=== PATIENT | male | born 1945 | race Caucasian/White ===

== ENCOUNTER 2022-01-10 07:58 | Emergency (ER) | payer MEDICARE, SELFPAY ==
--- NOTE | ~2022-01-10 | XR_ITS ---
EXAMINATION: XR chest 2V DATE: 01/10/2022 08:24 INDICATION: Left lower chest pain. TECHNIQUE: Frontal and lateral views of the chest were obtained. COMPARISON: None. FINDINGS: There is no pneumonia, pleural effusion, or pneumothorax. The heart size is normal. IMPRESSION: 1. No acute cardiopulmonary disease. Reviewed, dictated and finalized at location A.
--- NOTE | ~2022-01-10 | CT_ITS ---
EXAMINATION: CTA chest PE protocol DATE: 01/10/2022 09:10 INDICATION: Chest pain TECHNIQUE: Computed tomography angiography (CTA) of the chest was performed with 100 mL Omnipaque-350 intravenous contrast timed to evaluate the pulmonary arteries. Coronal maximum intensity projection 3D-reconstructions were created by the technologist. The dose-length product (DLP) was 587.87 mGy-cm. Automated exposure control and iterative reconstruction technique were employed. COMPARISON: None. FINDINGS: The pulmonary arteries are well-opacified. No pulmonary embolism is identified. There is mi ld dependent atelectasis. There are nodules along the right major and minor fissures which measure up to 4 mm, ureteral lymph nodes. There is no pleural effusion or pneumothorax. No pathologically enlar ged thoracic lymph nodes are identified. The heart size is normal. There is a small sliding hiatal he rnia. Stones are present in the nondistended gallbladder. There is moderate thoracic spondylosis. The re is a partially imaged 3.9 cm cyst of the left kidney. IMPRESSION: 1. No pulmonary embolus. Mild dependent atelectasis. Reviewed, dictated and finalized at location A.
[2022-01-10 08:02] VITALS: PULSE 93; RESP 17; TEMP 36.7; O2SAT 97
[2022-01-10 08:05] VITALS: PULSE 81
--- NOTE | 2022-01-10 08:05 | ECG_ITS ---
Measurements Intervals [place] Rate: 81 P: 49 RI: 135 QRS: 18 QRSD: 84 T: 16 QT: 348 QTc: 406 Interpretive Statements SINUS RHYTHM CANNOT RULE OUT INFERIOR MYOCARDIAL INFARCTION, PROBABLY OLD ABNORMAL ECG NO PREVIOUS ECG AVAILABLE FOR COMPARISON Electronically Signed On 01-10-2022 16:17:41 CDT by Jeremiah De Paz M.D.
--- NOTE | 2022-01-10 08:12 | ED.CHESTPAIN ---
HPI - Chest Pain General Chief Complaint: Chest Pain Stated Complaint: chest pain Time Seen by Provider: 01/10/22 08:00 Source: RN notes reviewed History of Present Illness HPI narrative: Patient presents emergency department from home for chest pain. Patient states pain began this morning upon awaking the pain is located over the left lateral inferior chest and is described as sharp and stabbing the pain only occurs when he takes a deep inspiration and resolves when he is at rest. Patient states that he has had no cough he denies any fevers or chills shortness of breath abdominal pain nausea vomiting or any other symptoms denies any previous cardiac history Related Data Home Medications Medication Instructions Recorded Confirmed amlodipine 5 mg tablet tablet 01/10/22 atorvastatin 10 mg tablet tablet 01/10/22 omeprazole 20 mg capsule,delayed 20 mg PO DAILY 01/10/22 01/10/22 release Allergies Allergy/AdvReac Type Severity Reaction Status Date / Time CAT Allergy Intermediate ITCHING, Uncoded 01/10/22 08:07 REDNESS OF EYES Review of Systems Review of Systems: Gen.: Denies fevers or chills ENT: Denies congestion Respiratory: Denies shortness of breath or cough CV: See HPI GI: Denies abdominal pain nausea, emesis or diarrhea Musculoskeletal: Denies back pain or muscle pain Neuro: Denies numbness, tingling, weakness or focal weakness Skin: Denies rash Except as documented, all other systems reviewed and negative [facility] Past Medical History Medical History (Updated 01/10/22 @ 12:01 by Jeff Rizzo DO) Hypercholesterolemia Hypertension Social History Social History (Updated 01/10/22 @ 08:13 by Jeff Rizzo DO) Smoking status: Never smoker Exam Narrative: APPEARANCE: No acute distress, nontoxic, resting in bed EYES: EOMI HEENT: Normocephalic, atraumatic, OMM RESPIRATORY: No respiratory distress Clear to auscultation bilaterally with no rhonchi wheezing or rales. CARDIOVASCULAR: Regular rate and rhythm without murmurs rubs or gallops. Chest: No overlying rash or ecchymosis nontender to palpation pain with deep inspiration no pain at rest or with holding breath ABDOMINAL: Soft, nontender, nondistended, no rebound or guarding MUSCULOSKELETAl: Moves all extremities. No clubbing, cyanosis or edema. NEURO: Awake and alert. Following commands, speech normal, no focal deficits SKIN:: Warm, dry. No rashes lesions or abrasions PSYCHIATRIC: Normal affect/mood, Course Course Emergency Course: Patient states pain is improved with Tylenol Discussed with Dr. De Paz for cardiology patient with heart score 4 based on age and risk factors but pain is atypical and more musculoskeletal in nature agrees with plan for discharge follow-up as an outpatient Discussed with patient results of workup and diagnosis. Discussed need for follow-up with primary care, proper use of medication, and reasons to return to the emergency department. Patient understands and agrees to current treatment plan Vital Signs Vital signs: Vital Signs Temperature 98.0 F 01/10/22 08:02 Pulse Rate 93 01/10/22 08:02 Respiratory Rate 17 01/10/22 08:02 Pulse Oximetry 97 01/10/22 08:02 Oxygen Delivery Room Air 01/10/22 08:02 Temperature 98.0 F 01/10/22 08:02 Pulse Rate 66 01/10/22 11:07 Respiratory Rate 14 01/10/22 11:07 Blood Pressure 148/98 H 01/10/22 11:07 Pulse Oximetry 95 01/10/22 11:07 Oxygen Delivery Room Air 01/10/22 08:02 MDM - Chest Pain MDM Narrative Medical decision making narrative: Patient's EKGs and labs are without significant high risk changes. Cardiac risk factors reviewed. Patient is felt likely low risk for ACS and reasonable for further risk stratification testing as an outpatient. Pain is only with deep inspiration and resolves with holding breath CTA shows no aneurysm PEs or pneumonia. Patient is felt to be a reasonable candidate for continued evaluation as an o
[2022-01-10] MEDS: ASPIRIN 81 MG CHEWABLE TABLET 324 MG PO (08:15)
[2022-01-10 08:17] LABS: Basophils Percent Auto 0.4 % (0.2-1.2); Eosinophils Absolute Auto 0.1 K/mm3 (0-0.3); Eosinophils Percent Auto 1.9 % (0-4.4); Hematocrit 44.9 % (42.0-52.0); Hemoglobin 15.2 g/dL (14.0-18.0); Immature Granulocyte Absolute 0.02 K/mm3 (0.00-0.031); Immature Granulocyte Percent A 0.3 % (0-0.5); Lymphocytes Percent Auto 17.3 % (18.3-44.2); Mean Corpuscular HGB Conc 33.9 g/dl (32-36); Mean Corpuscular Hemoglobin 31.3 pg (26-34); Mean Corpuscular Volume 92.4 fl (80-100); Mean Platelet Volume 9.6 fl (7.4-10.4); Monocytes Absolute Auto 0.7 K/mm3 (0.1-0.6); Monocytes Percent Auto 8.9 % (2.6-8.5); Neutrophils Absolute Auto 5.4 K/mm3 (1.3-6.7); Neutrophils Percent Auto 71.2 % (45.5-73.1); Platelet Count Result 286 k/mm3 (150-375); Red Blood Count 4.86 M/mm3 (4.6-6.20); Red Cell Distribution Width 13.7 % (11.5-14.5); White Blood Count 7.5 K/mm3 (4.5-10.0)
[2022-01-10 08:25] LABS: Prothrombin Time 12.8 Seconds (11.1-14.7)
[2022-01-10 08:26] LABS: Partial Thromboplastin Time 27.4 SECONDS (22.3-36.8)
[2022-01-10 08:30] VITALS: BP 153/93; PULSE 82; RESP 17; O2SAT 96
[2022-01-10 08:32] LABS: Alanine Aminotransferase 21 U/L (6-50); Albumin Level 4.9 g/dL (3.5-5.1); Alkaline Phosphatase 87 U/L (38-126); Anion Gap 5 mmol/L (8-16); Aspartate Amino Transferase 26 U/L (17-59); Bilirubin,Total 0.8 mg/dL (0.2-1.3); Blood Urea Nitrogen 16 mg/dL (9-20); Calcium 8.9 mg/dL (8.4-10.2); Carbon Dioxide 28 mmol/L (22-30); Chloride 105 mmol/L (98-107); Estimated CRCL calculation 63 ml/min; Estimated Glomerular Filt Rate > 60; Glucose 116 mg/dL (65-110); Lipase 124 U/L (23-300); Potassium 4.1 mmol/L (3.4-5.0); Sodium 138 mmol/L (137-145)
[2022-01-10 08:43] LABS: Troponin I < 0.012 ng/mL (0.000-0.034)
[2022-01-10 09:55] VITALS: BP 149/99; PULSE 68; RESP 18; O2SAT 97
[2022-01-10 11:07] VITALS: BP 148/98; PULSE 66; RESP 14; O2SAT 95
[2022-01-10 11:32] LABS: Troponin I < 0.012 ng/mL (0.000-0.034)
[2022-01-10 12:14] VITALS: BP 125/81; PULSE 66; RESP 18; O2SAT 98
== END 2022-01-10 12:15 | disposition home or self-care (01) ==
PROVIDERS: Emergency Provider Emergency Medicine; PCP Internal Medicine
DX: R07.89 Other chest pain (principal); E78.00 Pure hypercholesterolemia, unspecified; I10 Essential (primary) hypertension; R94.31 Abnormal electrocardiogram [ECG] [EKG]
CPT/HCPCS: 36415; 71046; 71275; 80053; 83690; 84484; 85025; 85610; 85730; 93005; 96365; 99284; A9270; J0131; Q9967

== ENCOUNTER → 2022-02-16 11:51 | Outpatient (CLI) | payer MEDICARE, SELFPAY ==
--- NOTE | ~2022-02-16 | US_ITS ---
EXAMINATION: US renal BI DATE: 02/16/2022 12:56 INDICATION: Disorders of the kidney and ureter TECHNIQUE: Multiple grayscale and Doppler ultrasound images of the kidneys were obtained. COMPARISON: None. FINDINGS: The right kidney measures 10.4 x 5.8 x 5.6 cm. The left kidney measures 11.6 x 6.6 x 7.4 cm . Cysts of the left kidney measure up to 11 cm.. The kidneys demonstrate normal parenchymal echogenic ity. There is no hydronephrosis. The bladder is normal. IMPRESSION: 1. Left kidney cysts, otherwise normal kidneys without hydronephrosis. Reviewed, dictated and finalized at location B.
== END ==
PROVIDERS: PCP Internal Medicine; Visit Provider Internal Medicine
DX: N28.1 Cyst of kidney, acquired (principal)
CPT/HCPCS: 76775

== ENCOUNTER → 2022-07-06 10:44 | Outpatient (CLI) | payer MEDICARE, SELFPAY ==
--- NOTE | ~2022-07-06 | XR_ITS ---
Clinical Indication: Cough, fever PA and lateral views of the chest: Comparison: 01/10/2022 Findings: The lungs are clear, without evidence of focal consolidation or pleural effusion. Cardiome diastinal silhouette is within normal limits. Bones and soft tissues are unremarkable. Impression: Normal chest. Reviewed, dictated and finalized at location [] NO BANKER Impression: Normal chest.
== END ==
PROVIDERS: PCP Internal Medicine; Visit Provider Allergy & Immunology
DX: R05.9 Cough, unspecified (principal); R50.9 Fever, unspecified
CPT/HCPCS: 71046

== ENCOUNTER 2024-08-27 09:33 | Outpatient (CLI) | payer MEDICARE, SELFPAY ==
--- OUTSIDE RECORDS SUMMARY | 2024-08-27 10:08 | XMS_ITS | Data Portability ---
Author Organization [facility] Roxy Contreras Address [address] [place] [address] Care Team Providers Care Television Journalist Name Role Phone JAYNA HICKMAN Primary Care Provider Unavailabl e Assessment Encounter Date Assessment Date Assessment LastModified by Organization Details LastModified Time 10/17/2023 10/17/2023 Blood work continue current therapy GERD asthma hypertension and dyslipidemia have been discussed he said he recently seen a malter operator just for overall cardiovascular checkup I will try to get those records see me in 4 months [email or web address] Not available 10/21/2023 18:06:07 02/12/2024 02/12/2024 diagnosis discussed referral for sleep physician. Healthy lifestyle care instructions. Follow up with me in 4 months. Not available 02/24/2024 21:39:46 Plan of Treatment Reminders Order Date Submit Date Provider Last Modified By Organization Details Last Modified Time Details Appointments ANY 15 2024 09:15A M Jayna Hickman MD Not available Not available Not available Lab PSA, total, serum or plasma 2023 024 MATT Shankar, [address], [place], [address], 10/18/2023 13:10:10 lipid panel, serum 2023 024 MATT Shankar, [address]22 [address], [place], [address], 10/18/2023 13:10:08 CBC w/ auto diff 2023 024 MATT Shankar, 2022 [address], [place], [address], 10/18/2023 13:10:10 CMP, serum or plasma 2023 024 MATT [facility], [address], [place], [address], 10/18/2023 13:10:09 Referral None recorded . Procedures None recorded . Surgeries None recorded . Imaging None recorded . Medication Orders None recorded . Patient TargetsNo targets recorded. Patient Instructions Encounter Date Encounter Id Patient Instructions Last Modified By Organization Details Last Modified Time 02/12/2024 [id number] A healthy lifestyle: care instructions [email or web address] Not available 02/12/2024 11:47:11 Quitting Tobacco : Care Instructions [email or web address] Not available 02/12/2024 11:47:11 Reason for Referral None Reported. Results Created Date Observation Date Name Description Value Unit Range Abnormal Flag Note LastModifiedBy Organization Detail LastModifiedTime 10/17/1910/18/2023 LIPID PANEL cholesterol, total 185 mg/dL 100-19 9 Not Available [facility] ([facility]) [address] [facility], [place], [address], 10/18/2023 13:10:08 10/17/19 24 10/18/2023 LIPID PANEL triglyceride s 170 mg/dL 0-149 above high normal Not Available [facility] ([facility]) [address] [facility], [place], [address], 10/18/2023 13:10:08 10/17/19 24 10/18/2023 LIPID PANEL HDL cholesterol 57 mg/dL >39 Not Available [facility] ([facility]) [address] [facility], [place], [address], 10/18/2023 13:10:08 10/17/19 24 10/18/2023 LIPID PANEL VLDL cholesterol vania 29 mg/dL 5-40 Not Available [facility] ([facility]) [address] [facility], [place], [address], 10/18/2023 13:10:08 10/17/19 24 10/18/2023 LIPID PANEL LDL chol calc ([facility]) 99 mg/dL 0-99 Not Available [facility] ([facility]) [address] [place], [address], 10/18/2023 13:10:08 10/17/19 24 10/18/2023 COMP. METAB OLIC PANEL (14) glucose 95 mg/dL 70-99 Not Available [facility] ([facility]) [address] [place], [address], 10/18/2023 13:10:09 10/17/19 24 10/18/2023 COMP. METAB OLIC PANEL (14) BUN 22 mg/dL 8-27 Not Available [facility] ([facility]) [address] [facility], [place], [address], 10/18/2023 13:10:09 10/17/19 24 10/18/2023 COMP. METAB OLIC PANEL (14) creatinine 1.11 mg/dL 0.76-1 .27 Not Available [facility] ([facility]) [address] [place], [address], 10/18/2023 13:10:09 10/17/19 24 10/18/2023 COMP. METAB OLIC PANEL (14) eGFR 69 mL/mi n/1.7 3 >59 Not Available [facility] ([facility]) [address] [place], [address], 10/18/2023 13:10:09 10/17/19 24 10/18/2023 COMP. METAB OLIC PANEL (14) BUN/creatini ne ratio 20 10- Not Available [facility] ([facility]) [address] [place], [address], 10/18/2023 13:10:09 10/17/19 24 10/18/2023 COMP. METAB OLIC PANEL (14) sodium 141 mmol/ L 134-14 4 Not Available [facility] ([facility]) [address] [place], [id number], 10/18/2023 13:10:09 10/17/19 24 10/18/2023 COMP. METAB OLIC PANEL (14) potassium 4.6 mmol/ L 3.5-5. 2 Not Available [facility] ([facility]) [address] [place], [id number], 10/18/2023 13:10:09 10/17/19 24 10/18/2023 COMP. METAB OLIC PANEL (14) chloride 105 mmol/ L 96-106 Not Available [facility] ([facility]) [address] [place], [id number], 10/18/2023 13:10:09 10/17/19 24 10/18/2023 COMP. METAB OLIC PANEL (14) carbon dioxide, total 24 mmol/ L 20-29 Not Available [facility] ([facility]) [address] [place], [id number], 10/18/2023 13:10:09 10/17/19 24 10/18/2023 COMP. METAB OLIC PANEL (14) calcium 9.1 mg/dL 8.6-10 .2 Not Available [facility] ([facility]) [address] [place], [id number], 10/18/2023 13:10:09 10/17/19 24 10/18/2023 COMP. METAB OLIC PANEL (14) protein, total 6.7 g/dL 6.0-8. 5 Not Available [facility] ([facility]) [address] [place], [id number], 10/18/2023 13:10:09 10/17/19 24 10/18/2023 COMP. METAB OLIC PANEL (14) albumin 4.5 g/dL 3.8-4. 8 Not Available [facility] ([facility]) [address] [place], [id number], 10/18/2023 13:10:09 10/17/19 24 10/18/2023 COMP. METAB OLIC PANEL (14) globulin, total 2.2 g/dL 1.5-4. 5 Not Available [facility] ([facility]) [address] [facility], [place], [address], 10/18/2023 13:10:09 10/17/19 24 10/18/2023 COMP. METAB OLIC PANEL (14) A/G ratio 2.0 1.2-2. 2 Not Available [facility] ([facility]) [address] [facility], [place], [address], 10/18/2023 13:10:09 10/17/19 24 10/18/2023 COMP. METAB OLIC PANEL (14) bilirubin, total 0.5 mg/dL 0.0-1. 2 Not Available [facility] ([facility]) [address] [facility], [place], [address], 10/18/2023 13:10:09 10/17/19 24 10/18/2023 COMP. METAB OLIC PANEL (14) alkaline phosphatase 88 IU/L 44-121 Not Available [facility] ([facility]) [address] [facility], [place], [address], 10/18/2023 13:10:09 10/17/19 24 10/18/2023 COMP. METAB OLIC PANEL (14) AST (SGOT) 24 IU/L 0-40 Not Available [facility] ([facility]) [address] [facility], [place], [address], 10/18/2023 13:10:09 10/17/19 24 10/18/2023 COMP. METAB OLIC PANEL (14) ALT (SGPT) 22 IU/L 0-44 Not Available [facility] ([facility]) [address] [facility], [place], [address], 10/18/2023 13:10:09 10/17/19 24 10/18/2023 CBC WITH DIFFE RENTI AL/PL ATELE T WBC 6.3 x10e3 /uL 3.4-10 .8 Not Available [facility] ([facility]) [address] [facility], [place], [address], 10/18/2023 13:10:10 10/17/19 24 10/18/2023 CBC WITH DIFFE RENTI AL/PL ATELE T RBC 4.76 x10e6 /uL 4.14-5 .80 Not Available [facility] ([facility]) [address] [facility], [place], [address], 10/18/2023 13:10:10 10/17/19 24 10/18/2023 CBC WITH DIFFE RENTI AL/PL ATELE T hemoglobin 14.9 g/dL 13.0-1 7.7 Not Available [facility] ([facility]) [address] [facility], [place], [address], 10/18/2023 13:10:10 10/17/19 24 10/18/2023 CBC WITH DIFFE RENTI AL/PL ATELE T hematocrit 44.6 % 37.5-5 1.0 Not Available [facility] ([facility]) [address] [facility], [place], [address], 10/18/2023 13:10:10 10/17/19 24 10/18/2023 CBC WITH DIFFE RENTI AL/PL ATELE T MCV 94 fL 79-97 Not Available [facility] ([facility]) [address] [facility], [place], [address], 10/18/2023 13:10:10 10/17/19 24 10/18/2023 CBC WITH DIFFE RENTI AL/PL ATELE T MCH 31.3 pg 26.6-3 3.0 Not Available [facility] ([facility]) [address] [facility], [place], [address], 10/18/2023 13:10:10 10/17/19 24 10/18/2023 CBC WITH DIFFE RENTI AL/PL ATELE T MCHC 33.4 g/dL 31.5-3 5.7 Not Available [facility] ([facility]) [address] [facility], [place], [address], 10/18/2023 13:10:10 10/17/19 24 10/18/2023 CBC WITH DIFFE RENTI AL/PL ATELE T RDW 13.0 % 11.6-1 5.4 Not Available [facility] ([facility]) [address] [facility], [place], [address], 10/18/2023 13:10:10 10/17/19 24 10/18/2023 CBC WITH DIFFE RENTI AL/PL ATELE T platelets 271 x10e3 /uL 150-45 0 Not Available [facility] ([facility]) [address] [facility], [place], [address], 10/18/2023 13:10:10 10/17/19 24 10/18/2023 CBC WITH DIFFE RENTI AL/PL ATELE T neutrophils 64 % notest ab. Not Available [facility] ([facility]) [address] [facility], [place], [address], 10/18/2023 13:10:10 10/17/19 24 10/18/2023 CBC WITH DIFFE RENTI AL/PL ATELE T lymphs 20 % notest ab. Not Available [facility] ([facility]) [address] [facility], [place], [address], 10/18/2023 13:10:10 10/17/19 24 10/18/2023 CBC WITH DIFFE RENTI AL/PL ATELE T monocytes 10 % notest ab. Not Available [facility] ([facility]) [address] [facility], [place], [address], 10/18/2023 13:10:10 10/17/19 24 10/18/2023 CBC WITH DIFFE RENTI AL/PL ATELE T eos 5 % notest ab. Not Available [facility] ([facility]) [address] [facility], [place], [address], 10/18/2023 13:10:10 10/17/19 24 10/18/2023 CBC WITH DIFFE RENTI AL/PL ATELE T basos 1 % notest ab. Not Available [facility] ([facility]) [address] [facility], [place], [address], 10/18/2023 13:10:10 10/17/19 24 10/18/2023 CBC WITH DIFFE RENTI AL/PL ATELE T neutrophils (absolute) 4.1 x10e3 /uL 1.4-7. 0 Not Available [facility] ([facility]) [address] [facility], [place], [address], 10/18/2023 13:10:10 10/17/19 24 10/18/2023 CBC WITH DIFFE RENTI AL/PL ATELE T lymphs (absolute) 1.2 x10e3 /uL 0.7-3. 1 Not Available [facility] ([facility]) [address] [facility], [place], [address], 10/18/2023 13:10:10 10/17/19 24 10/18/2023 CBC WITH DIFFE RENTI AL/PL ATELE T monocytes(ab solute) 0.7 x10e3 /uL 0.1-0. 9 Not Available [facility] ([facility]) [address] [place], [address], 10/18/2023 13:10:10 10/17/19 24 10/18/2023 CBC WITH DIFFE RENTI AL/PL ATELE T eos (absolute) 0.3 x10e3 /uL 0.0-0. 4 Not Available [facility] ([facility]) [address] [place], [address], 10/18/2023 13:10:10 10/17/19 24 10/18/2023 CBC WITH DIFFE RENTI AL/PL ATELE T baso (absolute) 0.0 x10e3 /uL 0.0-0. 2 Not Available [facility] ([facility]) [address] [facility], [place], [address], 10/18/2023 13:10:10 10/17/19 24 10/18/2023 CBC WITH DIFFE RENTI AL/PL ATELE T immature granulocytes 0 % notest ab. Not Available [facility] ([facility]) [address] [facility], [place], [address], 10/18/2023 13:10:10 10/17/19 24 10/18/2023 CBC WITH DIFFE RENTI AL/PL ATELE T immature grans (abs) 0.0 x10e3 /uL 0.0-0. 1 Not Available [facility] ([facility]) [address] [facility], [place], [address], 10/18/2023 13:10:10 10/17/19 24 10/18/2023 PROST ATE-S PECIF IC AG prostate specific Ag 3.7 NG/mL 0.0-4. 0 Mac ECLIA metho dolog y. Accor ding to the Ameri can [employer]rolo gical Assoc iatio n, Serum PSA shoul d decre ase and remai n at undet ectab le level s after radic al prost atect rossi. The AUA defin es bioch emica l recur rence as an initi al PSA value 0.2 ng/mL or great er follo wed by a subse quent confi rmato ry PSA value 0.2 ng/mL or great er. Value s obtai [place] with diffe rent assay metho ds or kits canno t be used inter johnson eably . Resul ts canno t be inter prete d as absol rj evide nce of the prese nce or absen ce of joseph ajit disea se. Not Available [facility] ([facility]) [address] [facility], [place], [address], 10/18/2023 13:10:10 Result Notes None recorded. Problems Name Problem SNOMED Code Status Onset Date Resolution Date Notes Provider Name and Address Organization Details Recorded Time Essential hypertension 90835344 Active 2023 ARMANDO Hernandez, [facility] 4 12:14:05 Screening for malignant neoplasm of prostate Active 2023 ARMANDO Hernandez, [facility] 4 12:14:06 Obstructive sleep apnea syndrome 88427402 Active 2023 Jayna Hickman MD Attn: Jeff duncan,[address] [facility], [place], [address], [facility] 4 21:37:57 Problem Notes None recorded. Procedures Surgical History Date Name Laterality Status Provider Name and Address Organization Details Recorded Time Tonsillectomy completed Shawna Capone MA [facility] 10/17/2023 11:36:24 Imaging Results None recorded. Procedure Notes None recorded. Medical Equipment None Reported. Allergies No known drug allergies Medications Name Sig Start Date Stop Date Status Note LastModified by Organization Details LastModified Time atorvastatin 10 mg tablet TAKE 1 TABLET BY MOUTH EVERY DAY active Not Available Not Available No t Available amlodipine 5 mg tablet TAKE 1 TABLET BY MOUTH EVERY DAY active Not Available Not Available No t Available sildenafil 100 mg tablet TAKE DIRECTED PER DOCTOR active Not Available Not Available No t Available Breo Ellipta 200 mcg-25 mcg/dose powder for inhalation INHALE 1 PUFF BY MOUTH EVERY DAY active Not Available Not Available No t Available Vitals Date Recorded Body weight Body mass index (BMI) Body height Heart rate Oxygen saturation Oxygen saturation in Arterial blood by Pulse oximetry Systolic blood pressure Diastolic blood pressure Provider Name and Address Organization Details Last Updated DateTime 4 39485.4 g 31.9 kg/m2 172.72 cm 73 /min 96 % 96 % 122 mm[Hg] 70 mm[Hg] Shawna Capone MA [facility] 4 11:40:03 Date Recorded Body height Body mass index (BMI) Body weight Heart rate Oxygen saturation Oxygen saturation in Arterial blood by Pulse oximetry Systolic blood pressure Diastolic blood pressure Provider Name and Address Organization Details Last Updated DateTime 4 172.72 cm 31.2 kg/m2 31841.7 2 g 80 /min 90 % 90 % 138 mm[Hg] 80 mm[Hg] Angela Boss [place] [facility] 4 10:37:23 Date Recorded Body height Body mass index (BMI) Body weight Heart rate Oxygen saturation Oxygen saturation in Arterial blood by Pulse oximetry Systolic blood pressure Diastolic blood pressure Provider Name and Address Organization Details Last Updated DateTime 5 172.72 cm 32.3 kg/m2 39696.3 g 77 /min 97 % 97 % 132 mm[Hg] 82 mm[Hg] Susan Garcia [place] [facility] 5 11:32:36 Social History Question Answer Notes LastModified by Organizat ion Details LastModified Time Tobacco Smoking Status Former Smoker Shawna Capone MA [facility], [facility] 10/17/2023 11:35:33 Do You Have An Advance Directive? Yes Information not available 10/17/2023 What Is Your Level Of Alcohol Consumption? Occasional Information not available 10/17/2023 Are You Blind Or Do You Have Difficulty Seeing? No Information not available 10/17/2023 What Is Your Level Of Caffeine Consumption? Moderate Information not available 10/17/2023 In The 14 Days Before Symptom Onset, Have You Had Close Contact With A Laboratory-confir med COVID-19 While That Case Was Ill? No Information not available 08/26/2024 In The 14 Days Before Symptom Onset, Have You Had Close Contact With A Person Who Is Under Investigation For COVID-19 While That Person Was Ill? No Information not available 08/26/2024 Have You Been To An Area Known To Be High Risk For COVID-19? No Information not available 08/26/2024 Are You Deaf Or Do You Have Serious Difficulty Hearing? No Information not available 10/17/2023 What Type Of Diet Are You Following? REGULAR Information not available 10/17/2023 What Was The Date Of Your Most Recent Tobacco Screening? 08/26/2024 Information not available 08/26/2024 What Is Your Current Pack Years? 20-29packyears Information not available 10/17/2023 What Is Your Relationship Status? Information not available 10/17/2023 Do You Use Your Seat Belt Or Car Seat Routinely? Yes Information not available 10/17/2023 Do You Have Smoke And Carbon Monoxide Detectors In Your Home? Yes Information not available 10/17/2023 How Much Tobacco Do You Smoke? 0.5 PPD Information not available 10/17/2023 Do You Feel Stressed (tense, Restless, Nervous, Or Anxious, Or Unable To Sleep At Night)? EG2428-2 Information not available 10/17/2023 Do You Use Any Illicit Or Recreational Drugs? No Information not available 10/17/2023 Do You Use Sunscreen Routinely? Yes Information not available 10/17/2023 Has Tobacco Cessation Counseling Been Provided? No Information not available 10/17/2023 How Many Years Have You Smoked Tobacco? 20 Information not available 10/17/2023 Do You Or Have You Ever Used Any Other Forms Of Tobacco Or Nicotine? No Information not available 10/17/2023 Sex: Male Functional Status Question Answer Note LastModified by OrganSymformat ion Details LastModified Time Are you able to care for yourself? Yes Information not available 10/17/2023 What is your exercise level? Occasional Information not available 10/17/2023 Mental Status None recorded. Family History Relationship Description Onset Age of this Age Resolved Age Notes LastModified by Organization Details LastModified Time Mother Alzheimer's disease [email or web address] Not available 2024 11:56:10 Sister Alzheimer's disease [email or web address] Not available 2024 11:56:10 Father Myocardial infarction [email or web address] Not available 08/23 11:56:22 Brother Myocardial infarction [email or web address] Not available 08/23 11:56:22 Brother Malignant tumor of pharynx [email or web address] Not available 2024 11:56:38 Brother Cerebrovascu lar accident [email or web address] Not available 11:56:45 Medical History Condition Response Coronary Artery Disease N Other N High Blood Pressure Y Atrial Fibrillation N Kidney or Bladder Problems N Thyroid Problems N GI Problems N Depression N COPD N Blood Clots N Have you had a mammogram in the last yea r? N Skin Problems N Anemia N Heart Attack (ND) N Anxiety Disorder N Diabetes N Muscle, Joint, or Bone Problems N Seizures/Epilepsy N Have you had a colonoscopy in the last 1 0 years? N Acid Reflux (GERD) Y Cancer N Stroke N Asthma Y Allergies N Have you had a PSA blood test in the las t year? Y High Cholesterol Y Hepatitis N Liver Disease N Headaches N Heart Failure N Osteoporosis N Immunizations Vaccine Type Date Status Note Provider Nam e and Address Organization Details Recorded Time Influenza, high-dose, quadrivalent, PF 2 completed Myriam King[place] null, [place] - [facility] 08/23/2024 11:54:02 Influenza, high-dose, quadrivalent, PF 0 completed Myriam Cervanteshl [place] [facility] 08/23/2024 11:54:02 Influenza, high-dose, quadrivalent, PF 1 completed Myriam [place] [facility] 08/23/2024 11:54:02 COVID-19, mRNA, LNP-S, PF, 30 mcg/0.3 mL dose 1 completed Myri[place] [facility] 08/23/2024 11:54:02 COVID-19, mRNA, LNP-S, PF, 30 mcg/0.3 mL dose 1 completed Myriam Cerv[place] [facility] 08/23/2024 11:54:02 COVID-19, mRNA, LNP-S, PF, 30 mcg/0.3 mL dose 1 completed Myriam Cerv[place] [facility] 08/23/2024 11:54:02 COVID-19, mRNA, LNP-S, PF, 30 mcg/0.3 mL dose, shivani-sucrose 2 completed Myriam Cerv[place] [facility] 08/23/2024 11:54:02 COVID-19, mRNA, LNP-S, bivalent, PF, 30 mcg/0.3 mL dose 2 completed Myri[place] [facility] 08/23/2024 11:54:02 pneumococcal polysaccharide PPV23 6 completed Myriam Hernandez null, [facility] 08/23/2024 11:54:02 pneumococcal polysaccharide PPV23 0 completed Myriam Hernandez null, [facility] 08/23/2024 11:54:02 Pneumococcal conjugate PCV 13 2 completed Myriam Hernandez null, [facility] 08/23/2024 11:54:02 Influenza, high-dose, trivalent, PF 7 completed Myriam Hernandez null, [facility] 08/23/2024 11:54:02 Past Encounters Encounter ID Performer Location Encounter Start Date Encounter Closed Date Diagnosis/Indication Diagnosis SNOMED-CT Code Diagnosis ICD10 Code Diagnosis Note [id number] Jayna Hickman MD [facility] ([facility] [address] [place] [address] 10/17/2023 11:09:11 10/17/2023 12:14:17 Essential hypertension 96358721 I10 Screening for malignant neoplasm of prostate 663948046 Z12.5 Hyperlipidemia 85345985 E78.5 Obstructiv e sleep apnea syndrome 28369950 G47.33 Asthma 957639386 J45.90 9 [id number] Jayna Hickman MD [facility] [place] [address] [place] [address] 02/12/2024 10:22:25 02/12/2024 11:53:49 Obesity 889405272 E66.8 Smoker 47466205 F17.200 Obstructiv e sleep apnea syndrome 16682743 G47.33 Essential hypertension 83617939 I10 Hyperlipidemia 98537930 E78.5 [id number] Tangela Kitchen MA [facility] [place] [address] [place] [address] 08/26/2024 10:54:32 08/26/2024 12:22:56 Body mass index 30+ - obesity 470231733 Z68.32 Obesity 154561187 E66.9 Essential hypertension 62472824 I10 Gastroesop hageal reflux disease without esophagitis 502213089 K21.9 Hyperlipidemia 57699584 E78.5 Screening for malignant neoplasm of prostate 319395839 Z12.5 Health Concerns Section Related Observation LastModified by Organization Detai ls LastModified Time None Recorded Concern Status LastModified by Organization Details LastModified Time None Recorded Advance Directives Directive Y: Payers Encounter Date Sequence Insurance Name Policy Number Policy Acosta Covered Member ID Acosta Member ID Guarantor Name 10/17/2023 1 [employer] (MEDICARE REPLACEMENT PPO) [id number] 1 Sterling Palm [id number] Sterling Palm 02/12/2024 1 [employer] (MEDICARE REPLACEMENT PPO) [id number] Sterling Palm [id number] Sterling Palm Notes Date Note Type Note Provider Name and Address Organization Details Recorded Time 10/17/2023 text/html Asthma doing wel l hypertension no chest pain no shortness of breath GERD no nausea no vomiting dyslipidemia try to watch his diet sleep apnea wearing his device and benefiting Jayna Hickman MD Attn: [address] [place], [address], [facility] 10/21/2023 18:07:47 02/12/2024 text/html hypertension no headache or dizziness. COPD doing fine on Breo obesity could use some help with weight restriction Jayna Hickman MD Attn: [address] [place], [address], [facility] 02/24/2024 21:40:02
--- OUTSIDE RECORDS SUMMARY | 2024-08-27 10:09 | XMS_ITS | Data Portability ---
Author Organization [place] - [facility] [place], Main Office Address [address] [place] [address] Assessment Encounter Date Assessment Date Assessment LastModified by Organization Details LastModified Time 09/29/2022 09/29/2022 Medical problems discussed doing fine blood work continue compliance with CPAP follow-up in 6 months Not available 10/01/2022 18:03:15 04/06/2023 04/06/2023 Will continue current therapy will follow-up in 6 months [email or web address] Not available 04/06/2023 21:19:00 Plan of Treatment Reminders Order Date Submit Date Provider Last Modified By Organization Details Last Modified Time Details Appointments None recorded . Lab lipid panel, serum 023 09/30/19 23 MATT Not available 3 19:10:41 CBC w/ auto diff 023 09/30/19 23 MATT Not available 3 18:48:15 CMP, serum or plasma 023 09/30/19 23 MATT Not available 3 19:10:46 Referral None recorded . Procedures None recorded . Surgeries None recorded . Imaging None recorded . Medication Orders None recorded . Patient TargetsNo targets recorded. Patient InstructionsNo instructions recorded. Reason for Referral None Reported. Results Created Date Observation Date Name Description Value Unit Range Abnormal Flag Note LastModifiedBy Organization Detail LastModifiedTime 09/02/19 22 09/02/2021 LIPID PANEL cholesterol 182 mg/dL 140-19 9 NIH BELLE NSUS RECOM MENDA TION FOR NEW STERO L: ADULT CHILD LOW RISK: <200 <170 BORDE RLINE : <200- 239 ----- HIGH RISK: >240 >200 Not Available [facility] (Lab) [address] [place], [address], 09/02/2021 21:15:09 09/02/19 22 09/02/2021 LIPID PANEL triglyceride s 94 mg/dL 0-150 NIH BELLE NSUS REPOR T RECOM MENDA TION FOR TRIGL YCERI ELPIDIO: ADULT CHILD LOW RISK: <150 ----- BODER LINE: 150-1 99 ----- HIGH RISK: >200 ----- Not Available [facility] (Lab) [address] [place], [address], 09/02/2021 21:15:09 09/02/19 22 09/02/2021 LIPID PANEL HDL cholesterol 70 mg/dL 40- Not Available [facility] (Lab) [address] [place], [address], 09/02/2021 21:15:09 09/02/19 22 09/02/2021 LIPID PANEL LDL cholesterol, calculated 93 mg/dL 0-130 NIH BELLE NSUS REPOR T RECOM MENDA TIONS FOR LDL: ADULT CHILD LOW RISK <130 <110 (OPTI MAL LDL) <100 ----- BORDE RLINE : 130-1 59 ----- HIGH RISK: >160 >130 A TRIGL YCERI DE RESUL T >400 INVAL IDATE S THE CALCU LATIO N FOR LDL FRACT IONAT ION - THE LDL RESUL T WILL NOT BE REPOR OLVIN. Not Available [facility] (Lab) [address] [place], [address], 09/02/2021 21:15:09 09/02/19 22 09/02/2021 HEMOG LOBIN A1C HA1C 5.6 % 4.0-6. 0 Diabe estefanía Scree renea Crite gracy: <5.7% Consi stent with absen ce of diabe estefanía 5.7-6 .4% Consi stent with incre ased risk for diabe estefanía (pred iabet es) >OR=6 .5% Consi stent with diabe estefanía REFER ENCE: Diabe estefanía Care 2016, 39(Littlejohn ppl.1 ):s13 -s22 Not Available [facility] (Lab) [address] [place], [address], 09/02/2021 21:17:27 09/02/19 22 09/02/2021 COMPR EHENS BOB METAB OLIC PANEL sodium 139 mmol/ L 137-14 5 Not Available [facility] (Lab) [address] [place], [address], 09/02/2021 21:15:07 09/02/19 22 09/02/2021 COMPR EHENS BOB METAB OLIC PANEL potassium 4.7 mmol/ L 3.5-5. 1 Not Available [facility] (Lab) [address] [facility] [place], [address], 09/02/2021 21:15:07 09/02/19 22 09/02/2021 COMPR EHENS BOB METAB OLIC PANEL chloride 107 mmol/ L 98-107 Not Available [facility] (Lab) [address] [place], [address], 09/02/2021 21:15:07 09/02/19 22 09/02/2021 COMPR EHENS BOB METAB OLIC PANEL carbon dioxide 29 mmol/ L 22-30 Not Available [facility] (Lab) [address] [place], [address], 09/02/2021 21:15:07 09/02/19 22 09/02/2021 COMPR EHENS BOB METAB OLIC PANEL agap 7.7 mmol/ L 14-22 low Not Available [facility] (Lab) [address] [facility] [place], [address], 09/02/2021 21:15:07 09/02/19 22 09/02/2021 COMPR EHENS BOB METAB OLIC PANEL aspartate aminotransfe rase 26 U/L 15-46 Not Available [facility] (Lab) [address] [place], [address], 09/02/2021 21:15:07 09/02/19 22 09/02/2021 COMPR EHENS BOB METAB OLIC PANEL glucose 93 mg/dL 70-99 Not Available [facility] (Lab) [address] [place], [address], 09/02/2021 21:15:07 09/02/19 22 09/02/2021 COMPR EHENS BOB METAB OLIC PANEL BUN 24 mg/dL 8-19 high Not Available [facility] (Lab) [address] [place], [address], 09/02/2021 21:15:07 09/02/19 22 09/02/2021 COMPR EHENS BOB METAB OLIC PANEL creatinine 1.07 mg/dL 0.66-1 .25 Not Available [facility] (Lab) [address] [place], [address], 09/02/2021 21:15:07 09/02/19 22 09/02/2021 COMPR EHENS BOB METAB OLIC PANEL GFR >60 Refer ence Range : [place] ge GFR Healt hy Adult : >60 mL/mi n/1.7 3 m2 Chron ic Kidne y Disea se: 15-60 mL/mi n/1.7 3 m2 Kidne y Failu re: <15/m L/min /1.73 m2 www.n iddk. nih.g ov The MDRD study equat ion has not been valid ated in child sj <18 years of age; pregn ant women ; the elder ly >85 years of age; or in some racia l or ethni c subgr oups, such as [facility] nics. Outsi de the valid ated gregory eters , estim ated GFR is less accur ate, requi ring clini vania judgm ent on a case- by-ca se basis . Clini vania inter preta tion for other races and ages must be made by the clini sherie. The MDRD study equat ion has not been valid ated for the evalu ation of serum creat inine relat ed to nutri jose l statu s or medic ation usage . For perso ns <18 years of age, a pedia tric GFR calcu lator is avail able on the [facility] websi te: https ://tea garrido.ludmila nayak.o yung/pr ofess ional s/kdo qi/gf r_cal culat or Not Available [facility] (Lab) [address] [place], [address], 09/02/2021 21:15:07 09/02/19 22 09/02/2021 COMPR EHENS BOB METAB OLIC PANEL alkaline phosphatase 89 U/L 38-126 Not Available [facility] (Lab) [address] [place], [address], 09/02/2021 21:15:07 09/02/19 22 09/02/2021 COMPR EHENS BOB METAB OLIC PANEL alanine aminotransfe rase 21 U/L 0-50 Not Available [facility] (Lab) [address] [place], [address], 09/02/2021 21:15:07 09/02/19 22 09/02/2021 COMPR EHENS BOB METAB OLIC PANEL bilirubin, total 0.50 mg/dL 0.20-1 .30 Not Available [facility] (Lab) [address] [place], [address], 09/02/2021 21:15:07 09/02/19 22 09/02/2021 COMPR EHENS BOB METAB OLIC PANEL calcium 8.7 mg/dL 8.4-10 .2 Not Available [facility] (Lab) [address] [place], [address], 09/02/2021 21:15:07 09/02/19 22 09/02/2021 COMPR EHENS BOB METAB OLIC PANEL total protein 7.1 g/dL 6.3-8. 2 Not Available [facility] (Lab) [address] [place], [address], 09/02/2021 21:15:07 09/02/19 22 09/02/2021 COMPR EHENS BOB METAB OLIC PANEL albumin 4.5 g/dL 3.0-4. 4 high Not Available [facility] (Lab) [address] [facility] [place], [address], 09/02/2021 21:15:07 09/02/19 22 09/02/2021 COMPR EHENS BOB METAB OLIC PANEL globulin 2.6 g/dL 2.6-4. 2 Not Available [facility] (Lab) [address] [place], [address], 09/02/2021 21:15:07 09/02/19 22 09/02/2021 COMPR EHENS BOB METAB OLIC PANEL A/G ratio 1.7 ratio 1.0-2. 0 Not Available [facility] (Lab) [address] [place], [address], 09/02/2021 21:15:07 09/02/19 22 09/02/2021 PSA SCREE N PSA medicare screen 3.51 NG/mL 0.00-4 .00 Not Available [facility] (Lab) [address] [place], [address], 09/02/2021 21:13:34 09/02/19 22 09/02/2021 CBC/C OMPLE TE BLD COUNT W/DIF F white blood cells 7.0 x10'3 /uL 4.2-10 .8 Not Available [facility] (Lab) [address] [place], [address], 09/02/2021 19:53:51 09/02/19 22 09/02/2021 CBC/C OMPLE TE BLD COUNT W/DIF F red blood cells 4.66 x10'6 /uL 4.10-5 .80 Not Available [facility] (Lab) [address] [place], [address], 09/02/2021 19:53:51 09/02/19 22 09/02/2021 CBC/C OMPLE TE BLD COUNT W/DIF F hemoglobin 14.7 g/dL 13.2-1 7.0 Not Available [facility] (Lab) [address] [place], [address], 09/02/2021 19:53:51 09/02/19 22 09/02/2021 CBC/C OMPLE TE BLD COUNT W/DIF F hematocrit 45.8 % 39.3-5 0.0 Not Available [facility] (Lab) [address] [place], [address], 09/02/2021 19:53:51 09/02/19 22 09/02/2021 CBC/C OMPLE TE BLD COUNT W/DIF F mean red cell volume 98.3 fL 80.0-9 7.0 high Not Available [facility] (Lab) [address] [place], [address], 09/02/2021 19:53:51 09/02/19 22 09/02/2021 CBC/C OMPLE TE BLD COUNT W/DIF F mean red cell hemoglobin 31.5 pg 27.0-3 3.0 Not Available [facility] (Lab) [address] [place], [address], 09/02/2021 19:53:51 09/02/19 22 09/02/2021 CBC/C OMPLE TE BLD COUNT W/DIF F mean RBC HGB concentratio n 32.1 g/dL 31.0-3 6.0 Not Available [facility] (Lab) [address] [place], [address], 09/02/2021 19:53:51 09/02/19 22 09/02/2021 CBC/C OMPLE TE BLD COUNT W/DIF F red cell distribution width 13.4 % 11.8-1 5.5 Not Available [facility] (Lab) [address] [place], [address], 09/02/2021 19:53:51 09/02/19 22 09/02/2021 CBC/C OMPLE TE BLD COUNT W/DIF F platelets 294 x10'3 /uL 150-40 0 Not Available [facility] (Lab) [address] [place], [address], 09/02/2021 19:53:51 09/02/19 22 09/02/2021 CBC/C OMPLE TE BLD COUNT W/DIF F mean platelet volume 10.5 fL 9.0-12 .4 Not Available [facility] (Lab) [address] [place], [address], 09/02/2021 19:53:51 09/02/19 22 09/02/2021 CBC/C OMPLE TE BLD COUNT W/DIF F neutrophils 66.1 % 39.0-7 2.0 Not Available [facility] (Lab) [address] [place], [address], 09/02/2021 19:53:51 09/02/19 22 09/02/2021 CBC/C OMPLE TE BLD COUNT W/DIF F lymphocytes 16.1 % 16.0-4 7.0 Not Available [facility] (Lab) [address] [place], [address], 09/02/2021 19:53:51 09/02/19 22 09/02/2021 CBC/C OMPLE TE BLD COUNT W/DIF F immature granulocytes 0.1 % 0.00-0 .50 Not Available [facility] (Lab) [address] [place], [address], 09/02/2021 19:53:51 09/02/19 22 09/02/2021 CBC/C OMPLE TE BLD COUNT W/DIF F monocytes 10.7 % 5.0-12 .0 Not Available [facility] (Lab) [address] [place], [address], 09/02/2021 19:53:51 02/10/20 22 09/02/2021 CBC/C OMPLE TE BLD COUNT W/DIF F eosinophils 6.4 % 1.0-7. 0 Not Available [facility] (Lab) [address] [place], [address], 09/02/2021 19:53:51 09/02/19 22 09/02/2021 CBC/C OMPLE TE BLD COUNT W/DIF F basophils 0.6 % 0.0-2. 0 Not Available [facility] (Lab) [address] [place], [address], 09/02/2021 19:53:51 09/02/19 22 09/02/2021 CBC/C OMPLE TE BLD COUNT W/DIF F neutrophils, absolute count 4.63 x10'3 /uL 1.5-8. 0 Not Available [facility] (Lab) [address] [place], [address], 09/02/2021 19:53:51 09/02/19 22 09/02/2021 CBC/C OMPLE TE BLD COUNT W/DIF F lymphocytes, absolute count 1.13 x10'3 /uL 1.07-3 .43 Not Available [facility] (Lab) [address] [place], [address], 09/02/2021 19:53:51 09/02/19 22 09/02/2021 CBC/C OMPLE TE BLD COUNT W/DIF F monocytes, absolute count 0.75 x10'3 /uL 0.29-0 .99 Not Available [facility] (Lab) [address] [place], [address], 09/02/2021 19:53:51 09/02/19 22 09/02/2021 CBC/C OMPLE TE BLD COUNT W/DIF F eosinophils, absolute count 0.45 x10'3 /uL 0.02-0 .53 Not Available [facility] (Lab) [address] [place], [address], 09/02/2021 19:53:51 09/02/19 22 09/02/2021 CBC/C OMPLE TE BLD COUNT W/DIF F basophils, absolute count 0.04 x10'3 /uL 0.01-0 .08 Not Available [facility] (Lab) [address] [place], [address], 09/02/2021 19:53:51 09/02/19 22 09/02/2021 CBC/C OMPLE TE BLD COUNT W/DIF F immature granulocytes ,absolute 0.01 x10'3 /uL 0.00-0 .05 Not Available [facility] (Lab) [address] [place], [address], 09/02/2021 19:53:51 09/02/19 22 09/02/2021 CBC/C OMPLE TE BLD COUNT W/DIF F nucleated red blood cells 0.0 % -0 Not Available [facility] (Lab) [address] [place], [address], 09/02/2021 19:53:51 09/02/19 22 09/02/2021 CBC/C OMPLE TE BLD COUNT W/DIF F NRBC# 0.00 x10'3 /uL Not Available [facility] (Lab) [address] [place], [address], 09/02/2021 19:53:51 09/30/19 23 09/29/2022 CBC/C OMPLE TE BLD COUNT W/DIF F white blood cells 6.7 x10'3 /uL 4.2-10 .8 Not Available [facility] (Lab) [address] [place], [address], 09/29/2022 18:48:15 09/30/19 23 09/29/2022 CBC/C OMPLE TE BLD COUNT W/DIF F red blood cells 4.56 x10'6 /uL 4.10-5 .80 Not Available [facility] (Lab) [address] [place], [address], 09/29/2022 18:48:15 09/30/19 23 09/29/2022 CBC/C OMPLE TE BLD COUNT W/DIF F hemoglobin 14.3 g/dL 13.2-1 7.0 Not Available [facility] (Lab) [address] [facility] [place], [address], 09/29/2022 18:48:15 09/30/19 23 09/29/2022 CBC/C OMPLE TE BLD COUNT W/DIF F hematocrit 43.3 % 39.3-5 0.0 Not Available [facility] (Lab) [address] [place], [address], 09/29/2022 18:48:15 09/30/19 23 09/29/2022 CBC/C OMPLE TE BLD COUNT W/DIF F mean red cell volume 95.0 fL 80.0-9 7.0 Not Available [facility] (Lab) [address] [place], [address], 09/29/2022 18:48:15 09/30/19 23 09/29/2022 CBC/C OMPLE TE BLD COUNT W/DIF F mean red cell hemoglobin 31.4 pg 27.0-3 3.0 Not Available [facility] (Lab) [address] [place], [address], 09/29/2022 18:48:15 09/30/19 23 09/29/2022 CBC/C OMPLE TE BLD COUNT W/DIF F mean RBC HGB concentratio n 33.0 g/dL 31.0-3 6.0 Not Available [facility] (Lab) [address] [place], [address], 09/29/2022 18:48:15 09/30/19 23 09/29/2022 CBC/C OMPLE TE BLD COUNT W/DIF F red cell distribution width 13.5 % 11.8-1 5.5 Not Available [facility] (Lab) [address] [place], [address], 09/29/2022 18:48:15 09/30/19 23 09/29/2022 CBC/C OMPLE TE BLD COUNT W/DIF F platelets 256 x10'3 /uL 150-40 0 Not Available [facility] (Lab) [address] [place], [address], 09/29/2022 18:48:15 09/30/1909/29/2022 CBC/C OMPLE TE BLD COUNT W/DIF F mean platelet volume 10.2 fL 9.0-12 .4 Not Available [facility] (Lab) [address] [place], [address], 09/29/2022 18:48:15 09/30/19 23 09/29/2022 CBC/C OMPLE TE BLD COUNT W/DIF F neutrophils 68.1 % 39.0-7 2.0 Not Available [facility] (Lab) [address] [place], [address], 09/29/2022 18:48:15 09/30/1909/29/2022 CBC/C OMPLE TE BLD COUNT W/DIF F lymphocytes 16.2 % 16.0-4 7.0 Not Available [facility] (Lab) [address] [place], [address], 09/29/2022 18:48:15 09/30/1909/29/2022 CBC/C OMPLE TE BLD COUNT W/DIF F monocytes 9.6 % 5.0-12 .0 Not Available [facility] (Lab) [address] [place], [address], 09/29/2022 18:48:15 09/30/19 23 09/29/2022 CBC/C OMPLE TE BLD COUNT W/DIF F eosinophils 4.9 % 1.0-7. 0 Not Available [facility] (Lab) [address] [place], [address], 09/29/2022 18:48:15 09/30/19 23 09/29/2022 CBC/C OMPLE TE BLD COUNT W/DIF F basophils 0.9 % 0.0-2. 0 Not Available [facility] (Lab) [address] [place], [address], 09/29/2022 18:48:15 09/30/1909/29/2022 CBC/C OMPLE TE BLD COUNT W/DIF F immature granulocytes 0.3 % 0.00-0 .50 Not Available [facility] (Lab) [address] [place], [address], 09/29/2022 18:48:15 09/30/1909/29/2022 CBC/C OMPLE TE BLD COUNT W/DIF F neutrophils, absolute count 4.55 x10'3 /uL 1.5-8. 0 Not Available [facility] (Lab) [address] [place], [address], 09/29/2022 18:48:15 09/30/19 23 09/29/2022 CBC/C OMPLE TE BLD COUNT W/DIF F lymphocytes, absolute count 1.08 x10'3 /uL 1.07-3 .43 Not Available [facility] (Lab) [address] [place], [address], 09/29/2022 18:48:15 09/30/1909/29/2022 CBC/C OMPLE TE BLD COUNT W/DIF F monocytes, absolute count 0.64 x10'3 /uL 0.29-0 .99 Not Available [facility] (Lab) [address] [place], [address], 09/29/2022 18:48:15 09/30/1909/29/2022 CBC/C OMPLE TE BLD COUNT W/DIF F eosinophils, absolute count 0.33 x10'3 /uL 0.02-0 .53 Not Available [facility] (Lab) [address] [place], [address], 09/29/2022 18:48:15 09/30/19 23 09/29/2022 CBC/C OMPLE TE BLD COUNT W/DIF F basophils, absolute count 0.06 x10'3 /uL 0.01-0 .08 Not Available [facility] (Lab) [address] [place], [address], 09/29/2022 18:48:15 09/30/1909/29/2022 CBC/C OMPLE TE BLD COUNT W/DIF F immature granulocytes ,absolute 0.02 x10'3 /uL 0.00-0 .05 Not Available [facility] (Lab) [address] [place], [address], 09/29/2022 18:48:15 09/30/1909/29/2022 CBC/C OMPLE TE BLD COUNT W/DIF F nucleated red blood cells 0.0 % -0 Not Available [facility] (Lab) [address] [place], [address], 09/29/2022 18:48:15 09/30/1909/29/2022 CBC/C OMPLE TE BLD COUNT W/DIF F NRBC# 0.00 x10'3 /uL Not Available [facility] (Lab) [address] [place], [address], 09/29/2022 18:48:15 09/30/1909/29/2022 LIPID PANEL cholesterol 175 mg/dL 140-19 9 NIH BELLE NSUS RECOM MENDA TION FOR NEW STERO L: ADULT CHILD LOW RISK: <200 <170 BORDE RLINE : <200- 239 ----- HIGH RISK: >240 >200 Not Available [facility] (Lab) [address] [place], [address], 09/29/2022 19:10:41 09/30/19 23 09/29/2022 LIPID PANEL triglyceride s 132 mg/dL 0-150 NIH BELLE NSUS REPOR T RECOM MENDA TION FOR TRIGL YCERI ELPIDIO: ADULT CHILD LOW RISK: <150 ----- BODER LINE: 150-1 99 ----- HIGH RISK: >200 ----- Not Available [facility] (Lab) [address] [place], [address], 09/29/2022 19:10:41 09/30/19 23 09/29/2022 LIPID PANEL HDL cholesterol 69 mg/dL 40- Not Available [facility] (Lab) [address] [place], [address], 09/29/2022 19:10:41 09/30/19 23 09/29/2022 LIPID PANEL LDL cholesterol, calculated 80 mg/dL 0-130 NIH BELLE NSUS REPOR T RECOM MENDA TIONS FOR LDL: ADULT CHILD LOW RISK <130 <110 (OPTI MAL LDL) <100 ----- BORDE RLINE : 130-1 59 ----- HIGH RISK: >160 >130 A TRIGL YCERI DE RESUL T >400 INVAL IDATE S THE CALCU LATIO N FOR LDL FRACT IONAT ION - THE LDL RESUL T WILL NOT BE REPOR OLVIN. Not Available [facility] (Lab) [address] [place], [address], 09/29/2022 19:10:41 09/30/19 23 09/29/2022 COMPR EHENS BOB METAB OLIC PANEL sodium 138 mmol/ L 137-14 5 Not Available [facility] (Lab) [address] [place], [address], 09/29/2022 19:10:46 09/30/19 23 09/29/2022 COMPR EHENS BOB METAB OLIC PANEL potassium 4.3 mmol/ L 3.5-5. 1 Not Available [facility] (Lab) [address] [place], [address], 09/29/2022 19:10:46 09/30/19 23 09/29/2022 COMPR EHENS BOB METAB OLIC PANEL chloride 105 mmol/ L 98-107 Not Available [facility] (Lab) [address] [place], [address], 09/29/2022 19:10:46 09/30/19 23 09/29/2022 COMPR EHENS BOB METAB OLIC PANEL carbon dioxide 26 mmol/ L 22-30 Not Available [facility] (Lab) [address] [place], [address], 09/29/2022 19:10:46 09/30/19 23 09/29/2022 COMPR EHENS BOB METAB OLIC PANEL anion gap 11.3 mmol/ L 14-22 low Not Available [facility] (Lab) [address] [place], [address], 09/29/2022 19:10:46 09/30/19 23 09/29/2022 COMPR EHENS BOB METAB OLIC PANEL glucose 101 mg/dL 70-99 high Not Available [facility] (Lab) [address] [place], [address], 09/29/2022 19:10:46 09/30/19 23 09/29/2022 COMPR EHENS BOB METAB OLIC PANEL BUN 18 mg/dL 8-19 Not Available [facility] (Lab) [address] [place], [address], 09/29/2022 19:10:46 09/30/19 23 09/29/2022 COMPR EHENS BOB METAB OLIC PANEL creatinine 1.08 mg/dL 0.66-1 .25 Not Available [facility] (Lab) [address] [place], [address], 09/29/2022 19:10:46 09/30/19 23 09/29/2022 COMPR EHENS BOB METAB OLIC PANEL GFR >60 Refer ence Range : [place] ge GFR Healt hy Adult : >60 mL/mi n/1.7 3 m2 Chron ic Kidne y Disea se: 15-60 mL/mi n/1.7 3 m2 Kidne y Failu re: <15/m L/min /1.73 m2 www.n iddk. nih.g ov The MDRD study equat ion has not been valid ated in child sj <18 years of age; pregn ant women ; the elder ly >85 years of age; or in some racia l or ethni c subgr oups, such as Hispa nics. Outsi de the valid ated gregory eters , estim ated GFR is less accur ate, requi ring clini vania judgm ent on a case- by-ca se basis . Clini vania inter preta tion for other races and ages must be made by the clini sherie. The MDRD study equat ion has not been valid ated for the evalu ation of serum creat inine relat ed to nutri jose l statu s or medic ation usage . For perso ns <18 years of age, a pedia tric GFR calcu lator is avail able on the [facility] websi te: https ://tea w.ludmila nayak.o yung/pr devendraess josé miguelal s/kdo qi/gf r_cal culat or Not Available [facility] (Lab) [address] [place], [address], 09/29/2022 19:10:46 09/30/19 23 09/29/2022 COMPR EHENS BOB METAB OLIC PANEL alkaline phosphatase 79 U/L 38-126 Not Available [facility] (Lab) [address] [place], [address], 09/29/2022 19:10:46 09/30/19 23 09/29/2022 COMPR EHENS BOB METAB OLIC PANEL alanine aminotransfe rase 21 U/L 0-50 Not Available [facility] (Lab) [address] [place], [address], 09/29/2022 19:10:46 09/30/19 23 09/29/2022 COMPR EHENS BOB METAB OLIC PANEL aspartate aminotransfe rase 27 U/L 15-46 Not Available [facility] (Lab) [address] [place], [address], 09/29/2022 19:10:46 09/30/19 23 09/29/2022 COMPR EHENS BOB METAB OLIC PANEL bilirubin, total 0.70 mg/dL 0.20-1 .30 Not Available [facility] (Lab) [address] [place], [address], 09/29/2022 19:10:46 09/30/19 23 09/29/2022 COMPR EHENS BOB METAB OLIC PANEL calcium 8.8 mg/dL 8.4-10 .2 Not Available [facility] (Lab) [address] [place], [address], 09/29/2022 19:10:46 09/30/19 23 09/29/2022 COMPR EHENS BOB METAB OLIC PANEL total protein 7.0 g/dL 6.3-8. 2 Not Available [facility] (Lab) [address] [place], [address], 09/29/2022 19:10:46 09/30/19 23 09/29/2022 COMPR EHENS BOB METAB OLIC PANEL albumin 4.4 g/dL 3.0-4. 4 Not Available [facility] (Lab) [address] [place], [address], 09/29/2022 19:10:46 09/30/19 23 09/29/2022 COMPR EHENS BOB METAB OLIC PANEL globulin 2.6 g/dL 2.6-4. 2 Not Available [facility] (Lab) [address] [place], [address], 09/29/2022 19:10:46 09/30/19 23 09/29/2022 COMPR EHENS BOB METAB OLIC PANEL A/G ratio 1.7 ratio 1.0-2. 0 Not Available [facility] (Lab) [address] [facility], [place], [address], 09/29/2022 19:10:46 01/11/20 22 01/10/2022 CT, angio gram, chest , w/ contr ast No observ ation record ed. [id number], [place], [address], 09/21/2022 06:22:18 01/11/20 22 01/10/2022 XR, chest No observ ation record ed. [id number], [place], [address], 09/21/2022 06:22:18 02/17/20 22 02/16/2022 US, renal No observ ation record ed. [id number] [facility] [address], [place], [address], 09/21/2022 06:22:18 10/14/19 23 07/06/2022 XR, chest , 2 view No observ ation record ed. [email or web address] Not Available 2022 13:32:44 07/06/20 23 07/06/2023 cardi ac stres s test No observ ation record ed. [email or web address] [facility] [address] [facility] [address], [place], [address], 07/31/2023 09:25:30 Result Notes None recorded. Problems Name Problem SNOMED Code Status Onset Date Resolution Date Notes Provider Name and Address Organization Details Recorded Time Blood glucose outside reference range [id number] Active 2021 Not Available [facility] 3 15:17:58 Gastroesop hageal reflux disease 109868947 Active Not Available [facility] 3 15:17:58 Dyslipidem ia 880170781 Active 2017 Not Available [facility] 3 15:17:58 Screening for malignant neoplasm of prostate Active 2021 Not Available [facility] 3 15:17:58 Essential hypertensi on 84005540 Active Not Available [facility] 3 15:17:58 Allergic rhinitis 80140765 Active Not Available [facility] 3 15:17:58 Polyp of colon 80612314 Active Not Available [facility] [place] 3 15:17:58 Obstructiv e sleep apnea syndrome 91032841 Active 2021 Not Available [facility] [place] 3 15:17:58 Kidney lesion 2634925999011 0 Active 2021 Not Available [facility] [place] 3 15:17:58 Notes:11-28-2017--last eye exa m 2-3 years ago Problem Notes None recorded. Procedures Surgical History Date Name Laterality Status Provider Name and Address Organization Details Recorded Time 6 Colonoscopy completed Not Available [facility] [place] 09/22/19 06:11:09 other completed Not Available [facility] [place] 07/2022 06:11:09 Imaging Results Imaging Date Name Status LastModified by Organiz ation Details LastModified Time 01/10/2022 CT, angiogram, chest, w/ contrast completed [id number], [place], [address], 09/21/2022 06:22:18 01/10/2022 XR, chest completed [id number], [place], [address], 09/21/2022 06:22:18 02/16/2022 US, renal completed [id number] 30 026 [facility] [address], [place], [address], 09/21/2022 06:22:18 07/06/2022 XR, chest, 2 view completed cyahl Information not available 10/13/2022 13:32:44 07/06/2023 cardiac stress test completed [facility] [address], [place], [address], 07/31/2023 09:25:30 Procedure Notes None recorded. Medical Equipment None Reported. Allergies Allergen ID Allergen Name Allergen Category Reaction Reaction Severity Criticality Documentation Date Start Date Code Code System Note Provider Name and Address Organization Details Recorded Time 88451 cat dander environme nt Not available Not available Not available 09/21/2022 12920 UNK Not Available [facility] 06:21:59 Medications Name Sig Start Date Stop Date Status Note LastModified by Organization Details LastModified Time amoxicilli n 500 mg capsule 11/28 completed Not Available Not Available Not Available atorvastat in 10 mg tablet TAKE 1 TABLET BY MOUTH EVERY DAY 2023 active Not Available Not Available Not Avai lable azithromyc in 250 mg tablet 08/20 completed Not Available Not Available Not Available valacyclov ir 1 gram tablet TK 1 T PO Q 8 H FOR 7 DAYS active Not Available Not Available No t Available hydrocodon e 5 mg-acetami nophen 325 mg tablet 11/28 completed Not Available Not Available Not Available prednisone 20 mg tablet 08/20 completed Not Available Not Available Not Available simvastati n 10 mg tablet 08/13 completed Not Available Not Available Not Available prednisone 5 mg tablet TAKE DIRECTED - FOLLOW ATTACHED INSTRUCTI ONS 09/29 completed Not Available Not Available Not Available naproxen 250 mg tablet TAKE 1 TABLET BY MOUTH TWICE DAILY NEEDED FOR PAIN 02/03 completed Not Available Not Available Not Available amlodipine 5 mg tablet TAKE 1 TABLET BY MOUTH EVERY DAY 2023 active Not Available Not Available Not Avai lable sulfametho xazole 800 mg-trimeth oprim 160 mg tablet 11/03 completed Not Available Not Available Not Available peg-electr olyte solution 420 gram oral solution 02/17 completed Not Available Not Available Not Available sildenafil 100 mg tablet DIRECTED BY THE DOCTOR active Not Available Not Available No t Available alprazolam 0.5 mg tablet 07/27 completed Not Available Not Available Not Available amoxicilli n 875 mg tablet 02/17 completed Not Available Not Available Not Available benzonatat e 100 mg capsule TAKE 2 CAPSULES BY MOUTH EVERY 8 HOURS NEEDED 09/29 completed Not Available Not Available Not Available oseltamivi r 75 mg capsule 02/17 completed Not Available Not Available Not Available diclofenac sodium 75 mg tablet,del ayed release 05/12 completed Not Available Not Available Not Available cefuroxime axetil 500 mg tablet 02/17 completed Not Available Not Available Not Available methylpred nisolone 4 mg tablets in a dose pack 02/17 completed Not Available Not Available Not Available fluticason e propionate 50 mcg/actuat ion nasal spray,susp ension INSTILL 2 SPRAYS IEN QD 02/17 completed Not Available Not Available Not Available doxycyclin e hyclate 100 mg tablet TAKE 1 TABLET BY MOUTH TWICE DAILY FOR 10 DAYS 09/29 completed Not Available Not Available Not Available Benadryl Allergy 25 mg tablet Take 1 tablet every 4 hours by oral route. active Not Available Not Available No t Available Pneumovax- 23 25 mcg/0.5 mL injection syringe ADM 0.5ML IM UTD 02/16 completed Not Available Not Available Not Available Asmanex Twisthaler 220 mcg/actuat ion(60 doses) breath activated inhalr INHALE 1 PUFF PO BID 02/17 completed Not Available Not Available Not Available Vitamin C 2020 active Not Available Not Available Not Avai lable omeprazole 2020 active Not Available Not Available Not Avai lable Vitamin D3 2020 active Not Available Not Available Not Avai lable ProAir HFA 90 mcg/actuat ion aerosol inhaler INL 2 PFS PO Q 4 H PRN 04/06 completed Not Available Not Available Not Available Dulera 200 mcg-5 mcg/actuat ion HFA aerosol inhaler 05/04 completed Not Available Not Available Not Available Virtussin AC 10 mg-100 mg/5 mL oral liquid 08/20 completed Not Available Not Available Not Available Arnuity Ellipta 200 mcg/actuat ion powder for inhalation INHALE 1 PUFF BY MOUTH EVERY DAY active Not Available Not Available No t Available Breo Ellipta 200 mcg-25 mcg/dose powder for inhalation INHALE 1 PUFF BY MOUTH EVERY DAY active Not Available Not Available No t Available melatonin 5 mg chewable tablet Take 2 tablets every day by oral route at bedtime. 2020 active Gummy Not Available Not Available Not Avai lable ID NOW COVID-19 Test Kit DIRECTED 09/02 completed Not Available Not Available Not Available Fluzone High-Dose Quad 2020-21 (PF) 240 mcg/0.7 mL IM syringe ADM 0.7ML IM UTD 02/16 completed Not Available Not Available Not Available YieldBuild COVID-19 Vaccine (PF) 30 mcg/0.3 mL IM susp (purple) ADMINISTE R 0.3ML IN THE MUSCLE DIRECTED 02/16 completed Not Available Not Available Not Available Vitals Date Recorded Body mass index (BMI) Body mass index (BMI) Body mass index (BMI) Body height Body height Body height Pain severity - 0-10 verbal numeric rating [Score] - Reported Heart rate Heart rate Heart rate Body temperature Body temperature Body temperature Body weight Body weight Body weight Systolic blood pressure Diastolic blood pressure Systolic blood pressure Diastolic blood pressure Systolic blood pressure Diastolic blood pressure Provider Name and Address Organization Details Last Updated DateTime 3 31.9 kg/m2 31.3 kg/m2 31 kg/m2 172.72 cm 172.72 cm 172.72 cm 0 78 /min 86 /min 77 /min 97.5 [degF] 96.9 [degF] 98.1 [degF] 52745.4 g 91772.0 3 g 15290.8 4 g 126 mm[Hg] 70 mm[Hg] 130 mm[Hg] 82 mm[Hg] 130 mm[Hg] 84 mm[Hg] Not Available [facility] 3 06:12:09 Date Recorded Body height Body mass index (BMI) Body weight Body temperature Heart rate Systolic blood pressure Diastolic blood pressure Provider Name and Address Organization Details Last Updated DateTime 3 172.72 cm 31.3 kg/m2 79532.0 3 g 97.8 [degF] 67 /min 122 mm[Hg] 70 mm[Hg] BRENDON Ching [place] [facility] 3 11:19:52 Date Recorded Body height Body mass index (BMI) Body weight Body temperature Heart rate Systolic blood pressure Diastolic blood pressure Provider Name and Address Organization Details Last Updated DateTime 3 172.72 cm 32.1 kg/m2 56893.9 9 g 97.5 [degF] 79 /min 118 mm[Hg] 82 mm[Hg] BRENDON Ching [place] [facility] 3 10:20:22 Social History Question Answer Notes LastModified by Organization Details LastModified Time Tobacco Smoking Status Former Smoker quit 30+ yrs ago Not Available [facility] 09/21/2022 06:09:15 Do You Have An Advance Directive? No MIGRATION.030 [id number] Information not available 09/21/2022 What Is Your Level Of Alcohol Consumption? Moderate 2 Beers A Day MIGRATION.300 [id number] Information not available 09/21/2022 Do You Wear A Helmet When Biking? No MIGRATION.030 686318 Information not available 09/21/2022 Are You Blind Or Do You Have Difficulty Seeing? No MIGRATION.030 665049 Information not available 09/21/2022 What Is Your Level Of Caffeine Consumption? Moderate MIGRATION.030 362965 Information not available 09/21/2022 In The 14 Days Before Symptom Onset, Have You Had Close Contact With A Laboratory-confi rmed COVID-19 While That Case Was Ill? No MIGRATION.030 538340 Information not available 09/21/2022 In The 14 Days Before Symptom Onset, Have You Had Close Contact With A Person Who Is Under Investigation For COVID-19 While That Person Was Ill? No MIGRATION.030 198536 Information not available 09/21/2022 Are You Deaf Or Do You Have Serious Difficulty Hearing? No MIGRATION.030 855620 Information not available 09/21/2022 What Type Of Diet Are You Following? REGULAR MIGRATION.030 867626 Information not available 09/21/2022 What Is The Highest Grade Or Level Of School You Have Completed Or The Highest Degree You Have Received? [id number] MIGRATION.[id number] Information not available 09/21/2022 What Is Your Occupation? Retired Teacher MIGRATION.22990829 Information not available 09/21/2022 Have There Been Any Changes To Your Family Or Social Situation? No Sister MIGRATION.300 473786 Information not available 09/21/2022 What Is The Fluoride Status Of Your Home? Unknown MIGRATION.0301 844096 Information not available 09/21/2022 When Did You Quit Smoking? 18+yearssincelastc igarette MIGRATION.0301 090147 Information not available 09/21/2022 Are There Any Guns Present In Your Home? No MIGRATION.0301 375973 Information not available 09/21/2022 Do You Use Insect Repellent Routinely? No MIGRATION.0301 494921 Information not available 09/21/2022 Where Do You Live? [facility] MIGRATION.0301 870980 Information not available 09/21/2022 Do You Have A Medical Power Of Human Resources Intern? No MIGRATION.0301 717680 Information not available 09/21/2022 What Was The Date Of Your Most Recent Tobacco Screening? 04/06/2023 [email or web address] Information not available 04/06/2023 Have You Ever Been Counseled For Unhealthy Alcohol Use? No MIGRATION.0301 592977 Information not available 09/21/2022 Do You Have Any Pets? Yes MIGRATION.0301 533802 Information not available 09/21/2022 What Is Your Relationship Status? MIGRATION.0301 026651 Information not available 09/21/2022 Do You Use Your Seat Belt Or Car Seat Routinely? Yes MIGRATION.0301 014366 Information not available 09/21/2022 Do You Have Smoke And Carbon Monoxide Detectors In Your Home? Yes MIGRATION.0301 788972 Information not available 09/21/2022 Are You Passively Exposed To Smoke? No MIGRATION.0301 771966 Information not available 09/21/2022 Are There Any Smokers In Your House? No MIGRATION.0301 078065 Information not available 09/21/2022 What Types Of Sporting Activities Do You Participate In? None MIGRATION.0301 328468 Information not available 09/21/2022 Do You Feel Stressed (tense, Restless, Nervous, Or Anxious, Or Unable To Sleep At Night)? OP1911-3 MIGRATION.0301 727451 Information not available 09/21/2022 Do You Use Any Illicit Or Recreational Drugs? No MIGRATION.0301 218530 Information not available 09/21/2022 Do You Use Sunscreen Routinely? No MIGRATION.0301 166267 Information not available 09/21/2022 Has Tobacco Cessation Counseling Been Provided? No MIGRATION.0301 190312 Information not available 09/21/2022 Have You Recently Traveled Abroad? No MIGRATION.0301 034908 Information not available 09/21/2022 Do You Have Any Dietary Restrictions? No MIGRATION.0301 501445 Information not available 09/21/2022 Do You Or Have You Ever Used Any Other Forms Of Tobacco Or Nicotine? No MIGRATION.0301 126778 Information not available 09/21/2022 Sex: Male Functional Status Question Answer Note LastModified by Organizat ion Details LastModified Time Do you have difficulty walking or climbing stairs? No MIGRATION.306217 5618 Information not available 09/21/2022 Do you have transportation difficulties? No MIGRATION.209967 0687 Information not available 09/21/2022 Are you able to walk? YESWOREST MIGRATION.715932 9773 Information not available 09/21/2022 Do you have difficulty doing errands alone? No MIGRATION.216665 0129 Information not available 09/21/2022 Are you able to care for yourself? Yes MIGRATION.665128 9943 Information not available 09/21/2022 Do you have difficulty dressing or bathing? No MIGRATION.887579 2895 Information not available 09/21/2022 What is your exercise level? Occasional active around the house MIGRATION.176128 6839 Information not available 09/21/2022 Mental Status Question Answer Note LastModified by Organizat ion Details LastModified Time Do you have difficulty concentrating, remembering or making decisions? No MIGRATION.[id number] 6 Information not available 09/21/2022 Family History Relationship Description Onset Age of this Age Resolved Age Notes LastModified by Organization Details LastModified Time Mother Alzheimer's disease deceas ed MIGRATION.835 [id number] Not available 09/21/2022 06:11:09 Father Myocardial infarction deceas ed MIGRATION.190 [id number] Not available 09/21/2022 06:11:09 Brother Myocardial infarction MIGRATION.906 8071530 Not available 09/21/2022 06:11:10 Brother Malignant tumor of pharynx deceas ed MIGRATION.116 1718353 Not available 09/21/2022 06:11:10 Brother Cerebrovascu lar accident x4 MIGRATION.364 [id number] Not available 09/21/2022 06:11:10 Sister Alzheimer's disease deceas ed MIGRATION.629 [id number] Not available 09/21/2022 06:11:10 Medical History Condition Response NERVE DISEASE N BLINDNESS N RHEUMATIC FEVER N KIDNEY STONES N BLADDER PROBLEMS N MRSA N OTHER # 1 N POLIO N LUNG DISEASE/DISORDER N HISTORY OF DRUG ABUSE N COPD N RADIATION / CHEMOTHERAPY N Other # 2 N BLOOD DISEASES N EAR OR HEARING PROBLEMS N MUMPS N SHINGLES N BOWEL PROBLEMS N DEPRESSION (INCLUDING POST ) N STROKE/TIA N ULCERS N BENIGN PROSTATIC HYPERPLASIA N MEASLES N HYPOTENSION N MYOCARDIAL INFARCTION N OBESITY N GERD/NAUSEA Y ANEURYSM N URINARY/BLADDER/KIDNEY PROBLEMS N CORONARY ARTERY DISEASE (CAD) N ADDICTION CONCERNS N ENDOMETRIOSIS N Impotence N USE OF BLOOD THINNERS N SKIN PROBLEMS N GASTROINTESTINAL DISORDER N PERIPHERAL VASCULAR DISEASE N MUSCLE,JOINT OR BONE PROBLEMS N GASTROINTESTINAL BLEEDING N BLOOD CLOTS N ASTHMA N CATARACTS N ERECTILE DYSFUNCTION N VARICOSITIES N GI PROBLEMS N Low Testosterone N INFERTILITY N AIDS/HIV N CHEMOTHERAPY / RADIATION N LIVER DISEASE N MALE HYPOGONADISM N HYPERTENSION Y Deficiency N TOURETTE'S N ANXIETY DISORDER N BLOOD TRANSFUSION N ANEMIA/BLOOD DISORDER N CHRONIC EAR INFECTIONS N BRONCHITIS N TUBERCULOSIS N GLAUCOMA N FOOT PROBLEM N DIVERTICULITIS N CHICKENPOX N SLEEP APNEA Y INFECTIOUS DISEASE N HEART ARRHYTHMIA N PROSTATE N INSOMNIA N HIGH CHOLESTEROL / HYPERLIPIDEMIA Y HYPERTHYROIDISM N EYE PROBLEMS N EDEMA N CHRONIC PAIN SYNDROME N HYPOTHYROIDISM N CAROTID BLOCKAGE N CONSTIPATION N BACK / NECK PROBLEMS Y ATHEROSCLEROSIS N BREAST PROBLEMS N DIALYSIS N ECZEMA N OSTEOPOROSIS N ARTHRITIS N APPENDICITIS N DIABETES, TYPE N BAD TEETH N ENT N HEARTBURN / REFLUX N AUTISM SPECTRUM DISORDER (ASD) N HEPATITIS / LIVER DISEASE N GOUT N SLEEP DISORDER N ALZHEIMER'S DISEASE N Brain Problems N HERPES N DEMENTIA N HEADACHES/MIGRAINES N SEIZURES/EPILEPSY N VASCULAR DISEASE N PACEMAKER N Blood Disorder N DIZZINESS N HEART DISEASE/HEART PROBLEMS N KIDNEY DISEASE N MULTIPLE SCLEROSIS N CARDIAC ARRHYTHMIA N CANCER: SPECIFY N ATRIAL FIBRILLATION N Gall Stones N PULMONARY EMBOLISM N AUTOIMMUNE DISEASE N Immunizations Vaccine Type Date Status Note Provider Nam e and Address Organization Details Recorded Time Influenza, high-dose, trivalent, PF 0 completed Not Available [facility] [place] 11/26/2022 15:17:58 COVID-19, mRNA, LNP-S, PF, 30 mcg/0.3 mL dose 1 completed Not Available [facility] [place] 11/26/2022 15:17:58 COVID-19, mRNA, LNP-S, PF, 30 mcg/0.3 mL dose 1 completed Not Available [facility] [place] 11/26/2022 15:17:58 COVID-19, mRNA, LNP-S, PF, 30 mcg/0.3 mL dose 1 completed Not Available [facility] [place] 11/26/2022 15:17:58 pneumococcal polysaccharide PPV23 0 completed Not Available [facility] [place] 11/26/2022 15:17:58 Influenza, high-dose, trivalent, PF 7 completed Not Available [facility] [place] 11/26/2022 15:17:58 Pneumococcal conjugate PCV 13 2 completed Not Available [facility] [place] 11/26/2022 15:17:58 pneumococcal polysaccharide PPV23 6 completed Not Available [facility] [place] 11/26/2022 15:17:58 Past Encounters Encounter ID Performer Location Encounter Start Date Encounter Closed Date Diagnosis/Indication Diagnosis SNOMED-CT Code Diagnosis ICD10 Code Diagnosis Note [id number] [facility] [address] [place] [address] 02/16/2021 00:00:00 02/16/2021 20:59:01 [id number] [facility] Internal Med [facility] l[facility]icky [facility] [address] [place] [address] 09/02/2021 00:00:00 09/25/2021 21:25:40 [id number] [facility] daniele [facility] [place] [address] [place] [address] 02/03/2022 00:00:00 02/05/2022 16:49:24 [id number] [facility] [place] [address] [place] [address] 06/02/2022 00:00:00 06/03/2022 15:08:25 [id number] Ean Hickman MD [facility] [place] [address] [place] [address] [place] [address] 09/29/2022 10:52:05 09/29/2022 12:42:52 Dyslipidemia 078851066 E78.5 Essential hypertension 15992356 I10 Gastroesop hageal reflux disease 950355160 K21.9 [id number] Ean Hickman MD [facility] Internal [facility] Jimi sanabria [address] [facility] [address] [place] [address] 04/06/2023 10:07:26 04/06/2023 11:06:56 Dyslipidemia 521512013 E78.5 Obstructiv e sleep apnea syndrome 11088361 G47.33 Essential hypertension 62767056 I10 Gastroesop hageal reflux disease 889832428 K21.9 Health Concerns Section Related Observation LastModified by Organization Detai ls LastModified Time None Recorded Concern Status LastModified by Organization Details LastModified Time None Recorded Advance Directives Directive N: Payers Encounter Date Sequence Insurance Name Policy Number Policy Acosta Covered Member ID Acosta Member ID Guarantor Name 09/29/2022 1 [employer] (MEDICARE REPLACEMENT PPO) [id number] 1 [employer] Palm [id number] [employer] 04/06/2023 1 [employer] (MEDICARE REPLACEMENT PPO) [id number] [employer] [id number] [employer] Notes Date Note Type Note Provider Name and Address Organization Details Recorded Time 04/06/2023 text/html Dyslipidemia betty ch his diet sleep apnea uses his machine gains benefit hypertension no headache or dizziness GERD no nausea no vomiting. COPD/asthma stable Ean Hickman MD [address] [facility] [address], [place], [address], [facility] [employer] 04/06/2023 21:19:18
[2024-08-27 10:32] LABS: Hematocrit 43.4 % (42.0-52.0); Hemoglobin 14.4 g/dL (14.0-18.0); Mean Corpuscular HGB Conc 33.2 g/dl (32-36); Mean Corpuscular Hemoglobin 31.6 pg (26-34); Mean Corpuscular Volume 95.2 fl (80-100); Mean Platelet Volume 9.8 fl (7.4-10.4); Platelet Count Result 252 k/mm3 (150-375); Red Blood Count 4.56 M/mm3 (4.6-6.20); Red Cell Distribution Width 13.5 % (11.5-14.5); White Blood Count 5.7 K/mm3 (4.5-10.0)
[2024-08-27 10:48] LABS: Alanine Aminotransferase 24 U/L (6-50); Albumin Level 4.4 g/dL (3.5-5.1); Alkaline Phosphatase 99 U/L (38-126); Anion Gap 9 mmol/L (4-12); Aspartate Amino Transferase 26 U/L (17-59); Bilirubin,Total 0.6 mg/dL (0.2-1.3); Blood Urea Nitrogen 16 mg/dL (9-20); Calcium 8.9 mg/dL (8.4-10.2); Carbon Dioxide 26 mmol/L (22-30); Chloride 108 mmol/L (98-107); Cholesterol 153 mg/dL (0-200); Estimated Glomerular Filt Rate > 60; Glucose 89 mg/dL (65-110); HDL Direct 63 mg/dL; Potassium 4.1 mmol/L (3.4-5.0); Sodium 143 mmol/L (137-145); Triglycerides 83 mg/dL (<150)
[2024-08-27 10:59] LABS: LDL Cholesterol Direct 77 mg/dL
== END 2024-08-27 09:34 | disposition home or self-care (01) ==
PROVIDERS: PCP Internal Medicine; Visit Provider Internal Medicine
DX: E78.5 Hyperlipidemia, unspecified (principal); I10 Essential (primary) hypertension; K21.9 Gastro-esophageal reflux disease without esophagitis; Z12.5 Encounter for screening for malignant neoplasm of prostate
CPT/HCPCS: 36415; 80053; 80061; 84153; 85027; G0103

== ENCOUNTER 2024-12-12 00:51 | Day surgery (SDC) | payer MEDICARE, SELFPAY ==
[2024-12-06 09:12] VITALS: BMI 31.5
--- OUTSIDE RECORDS SUMMARY | 2024-12-12 00:54 | XMS_ITS | Data Portability ---
Author Organization [facility] Address [address] [place] [address] Care Team Providers Care Excel Specialist Name Role Phone JAYNA HICKMAN Primary Care Provider Unavailabl e Assessment Encounter Date Assessment Date Assessment LastModified by Organization Details LastModified Time 10/17/2023 10/17/2023 Blood work continue current therapy GERD asthma hypertension and dyslipidemia have been discussed he said he recently seen a purification operator helper just for overall cardiovascular checkup I will try to get those records see me in 4 months [email or web address] Not available 10/21/2023 18:06:07 02/12/2024 02/12/2024 diagnosis discussed referral for sleep physician. Healthy lifestyle care instructions. Follow up with me in 4 months. [email or web address] Not available 02/24/2024 21:39:46 08/26/2024 08/26/2024 blood pressure controlled. Continue CPAP. Occasional GERD he uses omeprazole [id number]. Erectile dysfunction stable he will follow up with me in 6 months blood work ordered [email or web address] Not available 09/22/2024 14:28:38 Plan of Treatment Reminders Order Date Submit Date Provider Last Modified By Organization Details Last Modified Time Details Appointments ANY 15 2024 09:15A M Jayna Hickman MD Not available Not available Not available Lab CBC w/ auto diff 2024 025 MATT [facility], [address], [place], [address], 08/29/2024 14:49:18 CMP, serum or plasma 2024 025 MATT [facility], [address], [place], [address], 08/27/2024 17:30:05 lipid panel, serum 2024 025 [email or web address] [facility], [address], [place], [address], 08/29/2024 14:49:38 PSA, total, serum or plasma 2023 024 [facility], [address], [place], [address], 10/18/2023 13:10:10 lipid panel, serum 2023 024 [facility], [address], [place], [address], 10/18/2023 13:10:08 CBC w/ auto diff 2023 024 [facility], [address], [place], [address], 10/18/2023 13:10:10 CMP, serum or plasma 2023 024 [facility], [address], [place], [address], 10/18/2023 13:10:09 Referral None record ed. Procedures None record ed. Surgeries None record ed. Imaging None record ed. Medication Orders None record ed. Patient TargetsNo targets recorded. Patient Instructions Encounter Date Encounter Id Patient Instructions Last Modified By Organization Details Last Modified Time 02/12/2024 [id number] A healthy lifestyle: care instructions [email or web address] Not available 02/12/2024 11:47:11 Quitting Tobacco : Care Instructions [email or web address] Not available 02/12/2024 11:47:11 08/26/2024 [id number] A healthy lifestyle: care instructions [email or web address] Not available 08/26/2024 12:06:22 Reason for Referral None Reported. Results Created Date Observation Date Name Description Value Unit Range Abnormal Flag Note LastModifiedBy Organization Detail LastModifiedTime 10/17/19 24 10/18/2023 LIPID PANEL cholesterol, total 185 mg/dL 100-19 9 Not Available [facility] ([facility]) [address] [facility] [place], [address], 10/18/2023 13:10:08 10/17/19 24 10/18/2023 LIPID PANEL triglyceride s 170 mg/dL 0-149 above high normal Not Available [facility] ([facility]) [address] [facility] [place], [address], 10/18/2023 13:10:08 10/17/19 24 10/18/2023 LIPID PANEL HDL cholesterol 57 mg/dL >39 Not Available [facility] ([facility]) [address] [place], [address], 10/18/2023 13:10:08 10/17/19 24 10/18/2023 LIPID PANEL VLDL cholesterol vania 29 mg/dL 5-40 Not Available [facility] ([facility]) [address] [place], [address], 10/18/2023 13:10:08 10/17/19 24 10/18/2023 LIPID PANEL LDL chol calc (nih) 99 mg/dL 0-99 Not Available [facility] ([facility]) [address] [place], [address], 10/18/2023 13:10:08 10/17/19 24 10/18/2023 COMP. METAB OLIC PANEL (14) glucose 95 mg/dL 70-99 Not Available [facility] ([facility]) [address] [place], [address], 10/18/2023 13:10:09 10/17/19 24 10/18/2023 COMP. METAB OLIC PANEL (14) BUN 22 mg/dL 8-27 Not Available [facility] ([facility]) [address] [place], [address], 10/18/2023 13:10:09 10/17/19 24 10/18/2023 COMP. METAB OLIC PANEL (14) creatinine 1.11 mg/dL 0.76-1 .27 Not Available [facility] ([facility]) [address] [facility] [place], [address], 10/18/2023 13:10:09 10/17/19 24 10/18/2023 COMP. METAB OLIC PANEL (14) eGFR 69 mL/mi n/1.7 3 >59 Not Available [facility] ([facility]) [address] [facility] [place], [address], 10/18/2023 13:10:09 10/17/19 24 10/18/2023 COMP. METAB OLIC PANEL (14) BUN/creatini ne ratio 12 05- Not Available [facility] ([facility]) [address] [facility], [place], [address], 10/18/2023 13:10:09 10/17/19 24 10/18/2023 COMP. METAB OLIC PANEL (14) sodium 141 mmol/ L 134-14 4 Not Available [facility] ([facility]) [address] [facility] [place], [address], 10/18/2023 13:10:09 10/17/19 24 10/18/2023 COMP. METAB OLIC PANEL (14) potassium 4.6 mmol/ L 3.5-5. 2 Not Available [facility] ([facility]) [address] [facility] [place], [address], 10/18/2023 13:10:09 10/17/19 24 10/18/2023 COMP. METAB OLIC PANEL (14) chloride 105 mmol/ L 96-106 Not Available [facility] ([facility]) [address] [facility] [place], [address], 10/18/2023 13:10:09 10/17/19 24 10/18/2023 COMP. METAB OLIC PANEL (14) carbon dioxide, total 24 mmol/ L - Not Available [facility] ([facility]) [address] [facility], [place], [address], 10/18/2023 13:10:09 10/17/19 24 10/18/2023 COMP. METAB OLIC PANEL (14) calcium 9.1 mg/dL 8.6-10 .2 Not Available [facility] ([facility]) [address] [facility], [place], [address], 10/18/2023 13:10:09 10/17/19 24 10/18/2023 COMP. METAB OLIC PANEL (14) protein, total 6.7 g/dL 6.0-8. 5 Not Available [facility] ([facility]) [address] [facility], [place], [address], 10/18/2023 13:10:09 10/17/19 24 10/18/2023 COMP. METAB OLIC PANEL (14) albumin 4.5 g/dL 3.8-4. 8 Not Available [facility] ([facility]) [address] [facility], [place], [address], 10/18/2023 13:10:09 10/17/19 24 10/18/2023 COMP. METAB OLIC PANEL (14) globulin, total 2.2 g/dL 1.5-4. 5 Not Available [facility] ([facility]) [address] [facility], [place], [address], 10/18/2023 13:10:09 10/17/19 24 10/18/2023 COMP. METAB OLIC PANEL (14) A/G ratio 2.0 1.2-2. 2 Not Available [facility] ([facility]) [address] [facility], [place], [address], 10/18/2023 13:10:09 10/17/19 24 10/18/2023 COMP. METAB OLIC PANEL (14) bilirubin, total 0.5 mg/dL 0.0-1. 2 Not Available [facility] ([facility]) [address] [facility] [place], [address], 10/18/2023 13:10:09 10/17/19 24 10/18/2023 COMP. METAB OLIC PANEL (14) alkaline phosphatase 88 IU/L 44-121 Not Available [facility] ([facility]) [address] [facility], [place], [address], 10/18/2023 13:10:09 10/17/19 24 10/18/2023 COMP. METAB OLIC PANEL (14) AST (SGOT) 24 IU/L 0-40 Not Available [facility] ([facility]) [address] [facility], [place], [address], 10/18/2023 13:10:09 10/17/19 24 10/18/2023 COMP. METAB OLIC PANEL (14) ALT (SGPT) 22 IU/L 0-44 Not Available [facility] ([facility]) [address] [place], [address], 10/18/2023 13:10:09 10/17/19 24 10/18/2023 CBC WITH DIFFE RENTI AL/PL ATELE T WBC 6.3 x10e3 /uL 3.4-10 .8 Not Available [facility] ([facility]) [address] [place], [address], 10/18/2023 13:10:10 10/17/19 24 10/18/2023 CBC WITH DIFFE RENTI AL/PL ATELE T RBC 4.76 x10e6 /uL 4.14-5 .80 Not Available [facility] ([facility]) [address] [facility], [place], [address], 10/18/2023 13:10:10 10/17/19 24 10/18/2023 CBC WITH DIFFE RENTI AL/PL ATELE T hemoglobin 14.9 g/dL 13.0-1 7.7 Not Available [facility] ([facility]) [address] [facility], [place], [address], 10/18/2023 13:10:10 10/17/19 24 10/18/2023 CBC WITH DIFFE RENTI AL/PL ATELE T hematocrit 44.6 % 37.5-5 1.0 Not Available [facility] ([facility]) [address] [facility], [place], [address], 10/18/2023 13:10:10 10/17/19 24 10/18/2023 CBC WITH DIFFE RENTI AL/PL ATELE T MCV 94 fL 79-97 Not Available [facility] ([facility]) [address] [facility], [place], [address], 10/18/2023 13:10:10 10/17/19 24 10/18/2023 CBC WITH DIFFE RENTI AL/PL ATELE T MCH 31.3 pg 26.6-3 3.0 Not Available [facility] ([facility]) [address] [place], [address], 10/18/2023 13:10:10 10/17/19 24 10/18/2023 CBC WITH DIFFE RENTI AL/PL ATELE T MCHC 33.4 g/dL 31.5-3 5.7 Not Available [facility] ([facility]) [address] [place], [address], 10/18/2023 13:10:10 10/17/19 24 10/18/2023 CBC WITH DIFFE RENTI AL/PL ATELE T RDW 13.0 % 11.6-1 5.4 Not Available [facility] ([facility]) [address] [place], [address], 10/18/2023 13:10:10 10/17/19 24 10/18/2023 CBC WITH DIFFE RENTI AL/PL ATELE T platelets 271 x10e3 /uL 150-45 0 Not Available [facility] ([facility]) [address] [facility], [place], [address], 10/18/2023 13:10:10 10/17/19 24 10/18/2023 CBC WITH DIFFE RENTI AL/PL ATELE T neutrophils 64 % notest ab. Not Available [facility] ([facility]) [address] [facility], [place], [address], 10/18/2023 13:10:10 10/17/19 24 10/18/2023 CBC WITH DIFFE RENTI AL/PL ATELE T lymphs 20 % notest ab. Not Available [facility] ([facility]) [address] [facility], [place], [address], 10/18/2023 13:10:10 10/17/19 24 10/18/2023 CBC WITH DIFFE RENTI AL/PL ATELE T monocytes 10 % notest ab. Not Available [facility] ([facility]) [address] [facility], [place], [address], 10/18/2023 13:10:10 10/17/19 24 10/18/2023 CBC WITH DIFFE RENTI AL/PL ATELE T eos 5 % notest ab. Not Available [facility] ([facility]) [address] [place], [address], 10/18/2023 13:10:10 10/17/19 24 10/18/2023 CBC WITH DIFFE RENTI AL/PL ATELE T basos 1 % notest ab. Not Available [facility] ([facility]) [address] [place], [address], 10/18/2023 13:10:10 10/17/19 24 10/18/2023 CBC WITH DIFFE RENTI AL/PL ATELE T neutrophils (absolute) 4.1 x10e3 /uL 1.4-7. 0 Not Available [facility] ([facility]) [address] [place], [address], 10/18/2023 13:10:10 10/17/19 24 10/18/2023 CBC WITH DIFFE RENTI AL/PL ATELE T lymphs (absolute) 1.2 x10e3 /uL 0.7-3. 1 Not Available [facility] ([facility]) [address] [facility], [place], [address], 10/18/2023 13:10:10 10/17/19 24 10/18/2023 CBC WITH DIFFE RENTI AL/PL ATELE T monocytes(ab solute) 0.7 x10e3 /uL 0.1-0. 9 Not Available [facility] ([facility]) [address] [facility], [place], [address], 10/18/2023 13:10:10 10/17/19 24 10/18/2023 CBC WITH DIFFE RENTI AL/PL ATELE T eos (absolute) 0.3 x10e3 /uL 0.0-0. 4 Not Available [facility] ([facility]) [address] [facility], [place], [address], 10/18/2023 13:10:10 10/17/19 24 10/18/2023 CBC WITH DIFFE RENTI AL/PL ATELE T baso (absolute) 0.0 x10e3 /uL 0.0-0. 2 Not Available [facility] ([facility]) [address] [facility], [place], [address], 10/18/2023 13:10:10 10/17/19 24 10/18/2023 CBC WITH DIFFE RENTI AL/PL ATELE T immature granulocytes 0 % notest ab. Not Available [facility] ([facility]) [address] [facility], [place], [address], 10/18/2023 13:10:10 10/17/19 24 10/18/2023 CBC WITH DIFFE RENTI AL/PL ATELE T immature grans (abs) 0.0 x10e3 /uL 0.0-0. 1 Not Available [facility] ([facility]) [address] [facility], [place], [address], 10/18/2023 13:10:10 10/17/19 24 10/18/2023 PROST ATE-S [...] t be inter prete d as absol campo evide nce of the prese nce or absen ce of beto jo se. Not Available [facility] ([facility]) [address] [facility], [place], [address], 10/18/2023 13:10:10 Result Notes None recorded. Problems Name Problem SNOMED Code Status Onset Date Resolution Date Notes Provider Name and Address Organization Details Recorded Time Essential hypertension 55116988 Active 2023 Hilary Churchill MA null, [place] - [facility] 4 12:14:05 Screening for malignant neoplasm of prostate Active 2023 Hilary Churchill [place] null, [place] [facility] 4 12:14:06 Obstructive sleep apnea syndrome 19232204 Active 2023 Jayna Hickman MD Attn: Jeff duncan,[address] [facility], [place], [address], [place] [facility] 4 21:37:57 Gastroesophage al reflux disease without esophagitis 996647512 Active 2024 Jayna Hickman MD Attn: Jeff duncan,[address] [facility], [place], [address], [facility] - [facility] 5 14:27:52 Chronic obstructive pulmonary disease 54749409 Active 2024 Jayna Hickman MD Attn: Jeff duncan,[address], [place], [address], [facility] - [facility] 5 14:28:08 Problem Notes None recorded. Procedures Surgical History Date Name Laterality Status Provider Name and Address Organization Details Recorded Time Tonsillectomy completed Shawna Capone MA [facility] 10/17/2023 11:36:24 Imaging Results None recorded. Procedure Notes None recorded. Medical Equipment None Reported. Allergies No known drug allergies Medications Name Sig Start Date Stop Date Status Note LastModified by Organization Details LastModified Time atorvastatin 10 mg tablet TAKE 1 TABLET BY MOUTH EVERY DAY 2024 active Not Available Not Available Not Avai lable amlodipine 5 mg tablet TAKE 1 TABLET BY MOUTH EVERY DAY 2024 active Not Available Not Available Not Avai lable sildenafil 100 mg tablet TAKE DIRECTED PER [...] Address Organization Details Last Updated DateTime 4 48024.4 g 31.9 kg/m2 172.72 cm 73 /min 96 % 96 % 122 mm[Hg] 70 mm[Hg] Shawna Capone MA [facility] 4 11:40:03 Date Recorded Body height Body mass index (BMI) Body weight Heart rate Oxygen saturation Oxygen saturation in Arterial blood by Pulse oximetry Systolic blood pressure Diastolic blood pressure Provider Name and Address Organization Details Last Updated DateTime 4 172.72 cm 31.2 kg/m2 92558.7 2 g 80 /min 90 % 90 % 138 mm[Hg] 80 mm[Hg] Angela Boss MA [facility] 4 10:37:23 Date Recorded Body height Body mass index (BMI) Body weight Heart rate Oxygen saturation Oxygen saturation in Arterial blood by Pulse oximetry Systolic blood pressure Diastolic blood pressure Provider Name and Address Organization Details Last Updated DateTime 172.72 cm 32.3 kg/m2 19853.3 g 77 /min 97 % 97 % 132 mm[Hg] 82 mm[Hg] Susan Garcia MA [facility] 11:32:36 Social History Question Answer Notes LastModified by Organizat ion Details LastModified Time Tobacco Smoking Status Former Smoker ARMANDO Tucker, [place] - [facility] 10/17/2023 11:35:33 Do You Have An Advance Directive? Yes Information n ot available 10/17/2023 Are You Blind Or Do You Have Difficulty Seeing? No Information n ot available 10/17/2023 What Is Your Level Of Caffeine Consumption? Moderate Information not available 10/17/2023 In The 14 Days Before Symptom Onset, Have You Had Close Contact With A Laboratory-confirm ed COVID-19 While That Case Was Ill? No Information n ot available 08/26/2024 In The 14 Days Before [...] Of Diet Are You Following? REGULAR Information n ot available 10/17/2023 What Was The Date Of Your Most Recent Tobacco Screening? 08/26/2024 Information not available 08/26/2024 What Is Your Current Pack Years? 20-29packyear s Information not available 10/17/2023 What Is Your Relationship Status? Information not available 10/17/2023 Do You Use Your Seat Belt Or Car Seat Routinely? Yes Information not available 10/17/2023 Do You Have Smoke And Carbon Monoxide Detectors In Your Home? Yes Information not available 10/17/2023 How Much Tobacco Do You Smoke? 0.5 PPD Information not available 10/17/2023 Do You Use Sunscreen Routinely? Yes Information not available 10/17/2023 Has Tobacco Cessation Counseling Been Provided? No Information not available 10/17/2023 How Many Years Have You Smoked Tobacco? 20 Information not available 10/17/2023 Sex: Male Functional Status Question Answer Note LastModified by Organizat ion Details LastModified Time Do you use any illicit or recreational drugs? No Information not available 10/17/2023 Do you or have you ever used any other forms of tobacco or nicotine? No Information not available 10/17/2023 What is your level of alcohol consumption? Occasional Information not available 10/17/2023 Are you able to care for yourself? Yes Information n ot available 10/17/2023 What is your exercise level? Occasional Information not available 10/17/2023 Mental Status Question Answer Note LastModified by Organization D etails LastModified Time Do you feel stressed (tense, restless, nervous, or anxious, or unable to sleep at night)? AS2510-9 Information not available 10/17/2023 Family History Relationship Description Onset Age of [...] High Blood Pressure Y Atrial Fibrillation N Thyroid Problems N Kidney or Bladder Problems N GI Problems N Depression N COPD N Blood Clots N Have you had a mammogram in the last yea r? N Skin Problems N Anemia N Heart Attack ([place]) N Diabetes N Anxiety Disorder N Muscle, Joint, or Bone Problems N Seizures/Epilepsy N Have you had a colonoscopy in the last 1 0 years? N Acid Reflux (GERD) Y Cancer N Stroke N Asthma Y Allergies N Have you had a PSA blood test in the las t year? Y High Cholesterol Y Hepatitis N Liver Disease N Headaches N Osteoporosis N Heart Failure N Immunizations Vaccine Type Date Status Note Provider Nam e and Address Organization Details Recorded Time Influenza, high-dose, quadrivalent, PF 2 completed Myriam Saltese null, [place] [facility] 08/23/2024 11:54:02 Influenza, high-dose, quadrivalent, PF 0 completed Myriam [place] [facility] 08/23/2024 11:54:02 Influenza, high-dose, quadrivalent, PF 1 completed Myriam Cervanteshl null, [place] - [...] 30 mcg/0.3 mL dose 2 completed Myriam [place]erv[place] [facility] 08/23/2024 11:54:02 pneumococcal polysaccharide PPV23 6 completed Myriam Cerv[place], [place] [facility] 08/23/2024 11:54:02 pneumococcal polysaccharide PPV23 0 completed Myriam Hernandez null, [facility] 08/23/2024 11:54:02 Pneumococcal conjugate PCV 13 2 completed Myriam Hernandez null, [facility] 08/23/2024 11:54:02 Influenza, high-dose, trivalent, PF 7 completed Myriam Hernandez null, [facility] 08/23/2024 11:54:02 Past Encounters Encounter ID Performer Location Encounter Start Date Encounter Closed Date Diagnosis/Indication Diagnosis SNOMED-CT Code Diagnosis ICD10 Code Diagnosis Note [id number] Jayna Hickman MD [facility] (Adult Med) [address] [place] [phone] 10/17/2023 11:09:11 10/17/2023 12:14:17 Essential hypertension 72146335 I10 Screening for malignant neoplasm of prostate 438777636 Z12.5 Hyperlipidemia 62636057 E78.5 Obstructiv e sleep apnea syndrome 58532645 G47.33 Asthma 781618504 J45.90 9 [id number] Jayna Hickman MD [facility] [address] [place] [id number] 02/12/2024 10:22:25 02/12/2024 11:53:49 Obesity 198276229 E66.8 Smoker 53496615 F17.200 Obstructiv e sleep apnea syndrome 98450344 G47.33 Essential hypertension 37440999 I10 Hyperlipidemia 33183804 E78.5 [id number] Jayna Hickman MD [facility] [address] [place] [id number] 08/26/2024 10:54:32 08/26/2024 12:22:56 Body mass index 30+ - obesity 104706607 Z68.32 Obesity 474213253 E66.9 Essential hypertension 64332891 I10 Gastroesop hageal reflux disease without esophagitis 733378639 K21.9 Hyperlipidemia 27892699 E78.5 Screening for malignant neoplasm of prostate 143555150 Z12.5 Obstructiv e sleep apnea syndrome 16263638 G47.33 Chronic ob structive pulmonary disease 12125828 J44.9 Health Concerns Section Related Observation LastModified by Organization Detai ls LastModified Time None Recorded Concern Status LastModified by Organization Details LastModified Time None Recorded Advance Directives Directive Y: Payers Encounter Date Sequence Insurance Name Policy Number Policy Acosta Covered Member ID Acosta Member ID Guarantor Name 10/17/2023 1 [employer] (MEDICARE REPLACEMENT/ ADVANTAGE - PPO) [id number] Sterling Palm [id number] Sterling Palm 02/12/2024 1 [employer] (MEDICARE REPLACEMENT/ ADVANTAGE - PPO) [id number] Sterling Palm [id number] Sterling Palm 08/26/2024 1 [employer] (MEDICARE REPLACEMENT/ ADVANTAGE - PPO) [id number] Sterling Palm [id number] Sterling Palm Notes Date Note Type Note Provider Name and Address Organization Details Recorded Time 10/17/2023 text/html Asthma doing wel l hypertension no chest pain no shortness of breath GERD no nausea no vomiting dyslipidemia try to watch his diet sleep apnea wearing his device and benefiting Jayna Hickman MD Attn: [address] [place], [address], [facility] 10/21/2023 18:07:47 02/12/2024 text/html hypertension no headache or dizziness. COPD doing fine on Breo obesity could use some help with weight restriction Jayna Hickman MD Attn: [address] [place], [address], [facility] 02/24/2024 21:40:02 08/26/2024 text/html RADHA using CPAP getting refreshing sleep hypertension amlodipine blood pressure looks good hyperlipidemia atorvastatin no side effects. Tries to get a little bit of exercise but we have had a pretty rough winter lately and he has not been able to get out. Erectile dysfunction no side effects from medications. COPD stable Jayna Hickman MD Attn: [address] [place], [address], [facility] 09/22/2024 14:28:56
--- OUTSIDE RECORDS SUMMARY | 2024-12-12 00:54 | XMS_ITS | Continuity of Care Document ---
Author Organization [facility] Address [address] [place] [address] Phone Care Team Providers Care Assistant Plant Control Operator Name Role Phone Arnaldo Adams MD Unavailable Unavailable Medications Medication Instructions Dosage Effective Dates (start - stop) Status Comments RHINOCORT AQUA 32MCG SPRAY(S) 1 BID - Active Advance Directives Directive Yes / No Effective Date File Name No Information Encounters Encounter Description Practice Location Reason(s) For Visit Diagnoses Date Provider Providers Copied on Encounter [facility], [address] [place] [address], [id number], tel:[phone] [facility] No Information Bryan Mcintosh. [address] [place] [address], [id number] , . tel: [phone] [facility], [address] [place] [address], [id number], tel:[phone] [facility] ALLERGIC RHINITIS NECEXTRINSIC ASTHMA NOS Bryan Mcintosh. [address] [place] [address], [id number] , . tel: [phone] Family History Family Member Type Diagnosis Age At Onset No Information Payers Payer name Insurance type Covered alliance party ID Authoriza tion(s) No Information Social History Type Description Quantity Date Captured Comments Sex Male Smoking Status No Information Chief Complaint And Reason For Visit No Information Reason For Referral Reason For Referral No Information History Of Present Illness Encounter Date Complaint History Of Prese nt Illness No Information Functional Status Date Functional Assessmen t No Information Instructions Date Instruction Additional Infor mation No Information Assessments Type Assessment Date No Information Patient Care Teams Name Effective Dates (start - stop) Status Members No Information
--- OUTSIDE RECORDS SUMMARY | 2024-12-12 00:54 | XMS_ITS | Data Portability ---
Author Organization [place] [facility] [employer], Main Office Address [address] [place] [address] Assessment Encounter Date Assessment Date Assessment LastModified by Organization Details LastModified Time 09/29/2022 09/29/2022 Medical problems discussed doing fine blood work continue compliance with CPAP follow-up in 6 months [id number] Not available 10/01/2022 18:03:15 04/06/2023 04/06/2023 Will continue current therapy will follow-up in 6 months Not available 04/06/2023 21:19:00 Plan of Treatment [...] ----- HIGH RISK: >240 >200 Not Available [facility] (Lab) [address] [place], [address], 09/02/2021 21:15:09 09/02/19 22 09/02/2021 LIPID PANEL triglyceride s 94 mg/dL 0-150 NIH BELLE NSUS REPOR T RECOM MENDA TION FOR TRIGL YCERI ELPIDIO: ADULT CHILD LOW RISK: <150 ----- BODER LINE: 150-1 99 ----- HIGH RISK: >200 ----- Not Available [facility] (Lab) [address] [place], [address], 09/02/2021 21:15:09 09/02/19 22 09/02/2021 LIPID PANEL HDL cholesterol 70 mg/dL 40- Not Available [facility] (Lab) [address] [place], [address], 09/02/2021 21:15:09 09/02/19 22 09/02/2021 LIPID PANEL [...] WILL NOT BE REPOR OLVIN. Not Available [facility] (Lab) [address] [place], [address], 09/02/2021 21:15:09 09/02/19 22 09/02/2021 HEMOG LOBIN A1C HA1C 5.6 % 4.0-6. 0 Diabe estefanía Scree renea Crite gracy: <5.7% Consi stent with absen ce of diabe estefanía 5.7-6 .4% Consi stent with incre ased risk for diabe estefanía (pred iabet es) >OR=6 .5% Consi stent with diabe estefanía REFER ENCE: Diabe estefanía Care 2016, 39(Littlejohn ppl.1 ):s13 -s22 Not Available [facility] (Lab) [address] [place], [address], 09/02/2021 21:17:27 09/02/19 22 09/02/2021 COMPR EHENS BOB METAB OLIC PANEL sodium 139 mmol/ L 137-14 5 Not Available [facility] (Lab) [address] [place], [address], 09/02/2021 21:15:07 09/02/19 22 09/02/2021 COMPR EHENS BOB METAB OLIC PANEL potassium 4.7 mmol/ L 3.5-5. 1 Not Available [facility] (Lab) [address] [facility] [place], [address], 09/02/2021 21:15:07 09/02/19 22 09/02/2021 COMPR EHENS BOB METAB OLIC PANEL chloride 107 mmol/ L 98-107 Not Available [facility] (Lab) [address] [place], [address], 09/02/2021 21:15:07 09/02/19 22 09/02/2021 COMPR EHENS BOB METAB OLIC PANEL carbon dioxide 29 mmol/ L 22-30 Not Available [facility] (Lab) [address] [place], [address], 09/02/2021 21:15:07 09/02/19 22 09/02/2021 COMPR EHENS BOB METAB OLIC PANEL agap 7.7 mmol/ L 14-22 low Not Available [facility] (Lab) [address] [facility] [place], [address], 09/02/2021 21:15:07 09/02/19 22 09/02/2021 COMPR EHENS BOB METAB OLIC PANEL aspartate aminotransfe rase 26 U/L 15-46 Not Available [facility] (Lab) [address] [place], [address], 09/02/2021 21:15:07 09/02/19 22 09/02/2021 COMPR EHENS BOB METAB OLIC PANEL glucose 93 mg/dL 70-99 Not Available [facility] (Lab) [address] [place], [address], 09/02/2021 21:15:07 09/02/19 22 09/02/2021 COMPR EHENS BOB METAB OLIC PANEL BUN 24 mg/dL 8-19 high Not Available [facility] (Lab) [address] [place], [address], 09/02/2021 21:15:07 09/02/19 22 09/02/2021 COMPR EHENS BOB METAB OLIC PANEL creatinine 1.07 mg/dL 0.66-1 .25 Not Available [facility] (Lab) [address] [place], [address], 09/02/2021 21:15:07 09/02/19 22 09/02/2021 COMPR EHENS BOB METAB OLIC PANEL GFR >60 Refer ence Range : [place] ge GFR Healt hy Adult : >60 [...] or ethni c subgr oups, such as [facility] nics. Outsi de the valid ated [...] calcu lator is avail able on the [facility] websi te: https ://tea garrido.ludmila nayak.o yung/pr ofess ional s/kdo qi/gf r_cal culat or Not Available [facility] (Lab) [address] [place], [address], 09/02/2021 21:15:07 09/02/19 22 09/02/2021 COMPR EHENS BOB METAB OLIC PANEL alkaline phosphatase 89 U/L 38-126 Not Available [facility] (Lab) [address] [place], [address], 09/02/2021 21:15:07 09/02/19 22 09/02/2021 COMPR EHENS BOB METAB OLIC PANEL alanine aminotransfe rase 21 U/L 0-50 Not Available [facility] (Lab) [address] [place], [address], 09/02/2021 21:15:07 09/02/19 22 09/02/2021 COMPR EHENS BOB METAB OLIC PANEL bilirubin, total 0.50 mg/dL 0.20-1 .30 Not Available [facility] (Lab) [address] [place], [address], 09/02/2021 21:15:07 09/02/19 22 09/02/2021 COMPR EHENS BOB METAB OLIC PANEL calcium 8.7 mg/dL 8.4-10 .2 Not Available [facility] (Lab) [address] [place], [address], 09/02/2021 21:15:07 09/02/19 22 09/02/2021 COMPR EHENS BOB METAB OLIC PANEL total protein 7.1 g/dL 6.3-8. 2 Not Available [facility] (Lab) [address] [place], [address], 09/02/2021 21:15:07 09/02/19 22 09/02/2021 COMPR EHENS BOB METAB OLIC PANEL albumin 4.5 g/dL 3.0-4. 4 high Not Available [facility] (Lab) [address] [facility] [place], [address], 09/02/2021 21:15:07 09/02/19 22 09/02/2021 COMPR EHENS BOB METAB OLIC PANEL globulin 2.6 g/dL 2.6-4. 2 Not Available [facility] (Lab) [address] [place], [address], 09/02/2021 21:15:07 09/02/19 22 09/02/2021 COMPR EHENS BOB METAB OLIC PANEL A/G ratio 1.7 ratio 1.0-2. 0 Not Available [facility] (Lab) [address] [place], [address], 09/02/2021 21:15:07 09/02/19 22 09/02/2021 PSA SCREE N PSA medicare screen 3.51 NG/mL 0.00-4 .00 Not Available [facility] (Lab) [address] [place], [address], 09/02/2021 21:13:34 09/02/19 22 09/02/2021 CBC/C OMPLE TE BLD COUNT W/DIF F white blood cells 7.0 x10'3 /uL 4.2-10 .8 Not Available [facility] (Lab) [address] [place], [address], 09/02/2021 19:53:51 09/02/19 22 09/02/2021 CBC/C OMPLE TE BLD COUNT W/DIF F red blood cells 4.66 x10'6 /uL 4.10-5 .80 Not Available [facility] (Lab) [address] [place], [address], 09/02/2021 19:53:51 09/02/19 22 09/02/2021 CBC/C OMPLE TE BLD COUNT W/DIF F hemoglobin 14.7 g/dL 13.2-1 7.0 Not Available [facility] (Lab) [address] [place], [address], 09/02/2021 19:53:51 09/02/19 22 09/02/2021 CBC/C OMPLE TE BLD COUNT W/DIF F hematocrit 45.8 % 39.3-5 0.0 Not Available [facility] (Lab) [address] [place], [address], 09/02/2021 19:53:51 09/02/19 22 09/02/2021 CBC/C OMPLE TE BLD COUNT W/DIF F mean red cell volume 98.3 fL 80.0-9 7.0 high Not Available [facility] (Lab) [address] [place], [address], 09/02/2021 19:53:51 09/02/19 22 09/02/2021 CBC/C OMPLE TE BLD COUNT W/DIF F mean red cell hemoglobin 31.5 pg 27.0-3 3.0 Not Available [facility] (Lab) [address] [place], [address], 09/02/2021 19:53:51 09/02/19 22 09/02/2021 CBC/C OMPLE TE BLD COUNT W/DIF F mean RBC HGB concentratio n 32.1 g/dL 31.0-3 6.0 Not Available [facility] (Lab) [address] [place], [address], 09/02/2021 19:53:51 09/02/19 22 09/02/2021 CBC/C OMPLE TE BLD COUNT W/DIF F red cell distribution width 13.4 % 11.8-1 5.5 Not Available [facility] (Lab) [address] [place], [address], 09/02/2021 19:53:51 09/02/19 22 09/02/2021 CBC/C OMPLE TE BLD COUNT W/DIF F platelets 294 x10'3 /uL 150-40 0 Not Available [facility] (Lab) [address] [place], [address], 09/02/2021 19:53:51 09/02/19 22 09/02/2021 CBC/C OMPLE TE BLD COUNT W/DIF F mean platelet volume 10.5 fL 9.0-12 .4 Not Available [facility] (Lab) [address] [place], [address], 09/02/2021 19:53:51 09/02/19 22 09/02/2021 CBC/C OMPLE TE BLD COUNT W/DIF F neutrophils 66.1 % 39.0-7 2.0 Not Available [facility] (Lab) [address] [place], [address], 09/02/2021 19:53:51 09/02/19 22 09/02/2021 CBC/C OMPLE TE BLD COUNT W/DIF F lymphocytes 16.1 % 16.0-4 7.0 Not Available [facility] (Lab) [address] [place], [address], 09/02/2021 19:53:51 09/02/19 22 09/02/2021 CBC/C OMPLE TE BLD COUNT W/DIF F immature granulocytes 0.1 % 0.00-0 .50 Not Available [facility] (Lab) [address] [place], [address], 09/02/2021 19:53:51 09/02/19 22 09/02/2021 CBC/C OMPLE TE BLD COUNT W/DIF F monocytes 10.7 % 5.0-12 .0 Not Available [facility] (Lab) [address] [place], [address], 09/02/2021 19:53:51 02/10/20 22 09/02/2021 CBC/C OMPLE TE BLD COUNT W/DIF F eosinophils 6.4 % 1.0-7. 0 Not Available [facility] (Lab) [address] [place], [address], 09/02/2021 19:53:51 09/02/19 22 09/02/2021 CBC/C OMPLE TE BLD COUNT W/DIF F basophils 0.6 % 0.0-2. 0 Not Available [facility] (Lab) [address] [place], [address], 09/02/2021 19:53:51 09/02/19 22 09/02/2021 CBC/C OMPLE TE BLD COUNT W/DIF F neutrophils, absolute count 4.63 x10'3 /uL 1.5-8. 0 Not Available [facility] (Lab) [address] [place], [address], 09/02/2021 19:53:51 09/02/19 22 09/02/2021 CBC/C OMPLE TE BLD COUNT W/DIF F lymphocytes, absolute count 1.13 x10'3 /uL 1.07-3 .43 Not Available [facility] (Lab) [address] [place], [address], 09/02/2021 19:53:51 09/02/19 22 09/02/2021 CBC/C OMPLE TE BLD COUNT W/DIF F monocytes, absolute count 0.75 x10'3 /uL 0.29-0 .99 Not Available [facility] (Lab) [address] [place], [address], 09/02/2021 19:53:51 09/02/19 22 09/02/2021 CBC/C OMPLE TE BLD COUNT W/DIF F eosinophils, absolute count 0.45 x10'3 /uL 0.02-0 .53 Not Available [facility] (Lab) [address] [place], [address], 09/02/2021 19:53:51 09/02/19 22 09/02/2021 CBC/C OMPLE TE BLD COUNT W/DIF F basophils, absolute count 0.04 x10'3 /uL 0.01-0 .08 Not Available [facility] (Lab) [address] [place], [address], 09/02/2021 19:53:51 09/02/19 22 09/02/2021 CBC/C OMPLE TE BLD COUNT W/DIF F immature granulocytes ,absolute 0.01 x10'3 /uL 0.00-0 .05 Not Available [facility] (Lab) [address] [place], [address], 09/02/2021 19:53:51 09/02/19 22 09/02/2021 CBC/C OMPLE TE BLD COUNT W/DIF F nucleated red blood cells 0.0 % -0 Not Available [facility] (Lab) [address] [place], [address], 09/02/2021 19:53:51 09/02/19 22 09/02/2021 CBC/C OMPLE TE BLD COUNT W/DIF F NRBC# 0.00 x10'3 /uL Not Available [facility] (Lab) [address] [place], [address], 09/02/2021 19:53:51 09/30/19 23 09/29/2022 CBC/C OMPLE TE BLD COUNT W/DIF F white blood cells 6.7 x10'3 /uL 4.2-10 .8 Not Available [facility] (Lab) [address] [place], [address], 09/29/2022 18:48:15 09/30/19 23 09/29/2022 CBC/C OMPLE TE BLD COUNT W/DIF F red blood cells 4.56 x10'6 /uL 4.10-5 .80 Not Available [facility] (Lab) [address] [place], [address], 09/29/2022 18:48:15 09/30/19 23 09/29/2022 CBC/C OMPLE TE BLD COUNT W/DIF F hemoglobin 14.3 g/dL 13.2-1 7.0 Not Available [facility] (Lab) [address] [facility] [place], [address], 09/29/2022 18:48:15 09/30/19 23 09/29/2022 CBC/C OMPLE TE BLD COUNT W/DIF F hematocrit 43.3 % 39.3-5 0.0 Not Available [facility] (Lab) [address] [place], [address], 09/29/2022 18:48:15 09/30/19 23 09/29/2022 CBC/C OMPLE TE BLD COUNT W/DIF F mean red cell volume 95.0 fL 80.0-9 7.0 Not Available [facility] (Lab) [address] [place], [address], 09/29/2022 18:48:15 09/30/19 23 09/29/2022 CBC/C OMPLE TE BLD COUNT W/DIF F mean red cell hemoglobin 31.4 pg 27.0-3 3.0 Not Available [facility] (Lab) [address] [place], [address], 09/29/2022 18:48:15 09/30/19 23 09/29/2022 CBC/C OMPLE TE BLD COUNT W/DIF F mean RBC HGB concentratio n 33.0 g/dL 31.0-3 6.0 Not Available [facility] (Lab) [address] [place], [address], 09/29/2022 18:48:15 09/30/19 23 09/29/2022 CBC/C OMPLE TE BLD COUNT W/DIF F red cell distribution width 13.5 % 11.8-1 5.5 Not Available [facility] (Lab) [address] [place], [address], 09/29/2022 18:48:15 09/30/19 23 09/29/2022 CBC/C OMPLE TE BLD COUNT W/DIF F platelets 256 x10'3 /uL 150-40 0 Not Available [facility] (Lab) [address] [place], [address], 09/29/2022 18:48:15 09/30/1909/29/2022 CBC/C OMPLE TE BLD COUNT W/DIF F mean platelet volume 10.2 fL 9.0-12 .4 Not Available [facility] (Lab) [address] [place], [address], 09/29/2022 18:48:15 09/30/19 23 09/29/2022 CBC/C OMPLE TE BLD COUNT W/DIF F neutrophils 68.1 % 39.0-7 2.0 Not Available [facility] (Lab) [address] [place], [address], 09/29/2022 18:48:15 09/30/1909/29/2022 CBC/C OMPLE TE BLD COUNT W/DIF F lymphocytes 16.2 % 16.0-4 7.0 Not Available [facility] (Lab) [address] [place], [address], 09/29/2022 18:48:15 09/30/1909/29/2022 CBC/C OMPLE TE BLD COUNT W/DIF F monocytes 9.6 % 5.0-12 .0 Not Available [facility] (Lab) [address] [place], [address], 09/29/2022 18:48:15 09/30/19 23 09/29/2022 CBC/C OMPLE TE BLD COUNT W/DIF F eosinophils 4.9 % 1.0-7. 0 Not Available [facility] (Lab) [address] [place], [address], 09/29/2022 18:48:15 09/30/19 23 09/29/2022 CBC/C OMPLE TE BLD COUNT W/DIF F basophils 0.9 % 0.0-2. 0 Not Available [facility] (Lab) [address] [place], [address], 09/29/2022 18:48:15 09/30/1909/29/2022 CBC/C OMPLE TE BLD COUNT W/DIF F immature granulocytes 0.3 % 0.00-0 .50 Not Available [facility] (Lab) [address] [place], [address], 09/29/2022 18:48:15 09/30/1909/29/2022 CBC/C OMPLE TE BLD COUNT W/DIF F neutrophils, absolute count 4.55 x10'3 /uL 1.5-8. 0 Not Available [facility] (Lab) [address] [place], [address], 09/29/2022 18:48:15 09/30/19 23 09/29/2022 CBC/C OMPLE TE BLD COUNT W/DIF F lymphocytes, absolute count 1.08 x10'3 /uL 1.07-3 .43 Not Available [facility] (Lab) [address] [place], [address], 09/29/2022 18:48:15 09/30/1909/29/2022 CBC/C OMPLE TE BLD COUNT W/DIF F monocytes, absolute count 0.64 x10'3 /uL 0.29-0 .99 Not Available [facility] (Lab) [address] [place], [address], 09/29/2022 18:48:15 09/30/1909/29/2022 CBC/C OMPLE TE BLD COUNT W/DIF F eosinophils, absolute count 0.33 x10'3 /uL 0.02-0 .53 Not Available [facility] (Lab) [address] [place], [address], 09/29/2022 18:48:15 09/30/19 23 09/29/2022 CBC/C OMPLE TE BLD COUNT W/DIF F basophils, absolute count 0.06 x10'3 /uL 0.01-0 .08 Not Available [facility] (Lab) [address] [place], [address], 09/29/2022 18:48:15 09/30/1909/29/2022 CBC/C OMPLE TE BLD COUNT W/DIF F immature granulocytes ,absolute 0.02 x10'3 /uL 0.00-0 .05 Not Available [facility] (Lab) [address] [place], [address], 09/29/2022 18:48:15 09/30/1909/29/2022 CBC/C OMPLE TE BLD COUNT W/DIF F nucleated red blood cells 0.0 % -0 Not Available [facility] (Lab) [address] [place], [address], 09/29/2022 18:48:15 09/30/1909/29/2022 CBC/C OMPLE TE BLD COUNT W/DIF F NRBC# 0.00 x10'3 /uL Not Available [facility] (Lab) [address] [place], [address], 09/29/2022 18:48:15 09/30/1909/29/2022 LIPID PANEL cholesterol 175 mg/dL 140-19 9 NIH BELLE NSUS RECOM MENDA TION FOR NEW STERO L: ADULT CHILD LOW RISK: <200 <170 BORDE RLINE : <200- 239 ----- HIGH RISK: >240 >200 Not Available [facility] (Lab) [address] [place], [address], 09/29/2022 19:10:41 09/30/19 23 09/29/2022 LIPID PANEL triglyceride s 132 mg/dL 0-150 NIH BELLE NSUS REPOR T RECOM MENDA TION FOR TRIGL YCERI ELPIDIO: ADULT CHILD LOW RISK: <150 ----- BODER LINE: 150-1 99 ----- HIGH RISK: >200 ----- Not Available [facility] (Lab) [address] [place], [address], 09/29/2022 19:10:41 09/30/19 23 09/29/2022 LIPID PANEL HDL cholesterol 69 mg/dL 40- Not Available [facility] (Lab) [address] [place], [address], 09/29/2022 19:10:41 09/30/19 23 09/29/2022 LIPID PANEL [...] WILL NOT BE REPOR OLVIN. Not Available [facility] (Lab) [address] [place], [address], 09/29/2022 19:10:41 09/30/19 23 09/29/2022 COMPR EHENS BOB METAB OLIC PANEL sodium 138 mmol/ L 137-14 5 Not Available [facility] (Lab) [address] [place], [address], 09/29/2022 19:10:46 09/30/19 23 09/29/2022 COMPR EHENS BOB METAB OLIC PANEL potassium 4.3 mmol/ L 3.5-5. 1 Not Available [facility] (Lab) [address] [place], [address], 09/29/2022 19:10:46 09/30/19 23 09/29/2022 COMPR EHENS BOB METAB OLIC PANEL chloride 105 mmol/ L 98-107 Not Available [facility] (Lab) [address] [place], [address], 09/29/2022 19:10:46 09/30/19 23 09/29/2022 COMPR EHENS BOB METAB OLIC PANEL carbon dioxide 26 mmol/ L 22-30 Not Available [facility] (Lab) [address] [place], [address], 09/29/2022 19:10:46 09/30/19 23 09/29/2022 COMPR EHENS BOB METAB OLIC PANEL anion gap 11.3 mmol/ L 14-22 low Not Available [facility] (Lab) [address] [place], [address], 09/29/2022 19:10:46 09/30/19 23 09/29/2022 COMPR EHENS BOB METAB OLIC PANEL glucose 101 mg/dL 70-99 high Not Available [facility] (Lab) [address] [place], [address], 09/29/2022 19:10:46 09/30/19 23 09/29/2022 COMPR EHENS BOB METAB OLIC PANEL BUN 18 mg/dL 8-19 Not Available [facility] (Lab) [address] [place], [address], 09/29/2022 19:10:46 09/30/19 23 09/29/2022 COMPR EHENS BOB METAB OLIC PANEL creatinine 1.08 mg/dL 0.66-1 .25 Not Available [facility] (Lab) [address] [place], [address], 09/29/2022 19:10:46 09/30/19 23 09/29/2022 COMPR EHENS BOB METAB OLIC PANEL GFR >60 Refer ence Range : [place] ge GFR Healt hy Adult : >60 [...] calcu lator is avail able on the [facility] websi te: https ://tea w.ludmila nayak.o yung/pr devendraess josé miguelal s/kdo qi/gf r_cal culat or Not Available [facility] (Lab) [address] [place], [address], 09/29/2022 19:10:46 09/30/19 23 09/29/2022 COMPR EHENS BOB METAB OLIC PANEL alkaline phosphatase 79 U/L 38-126 Not Available [facility] (Lab) [address] [place], [address], 09/29/2022 19:10:46 09/30/19 23 09/29/2022 COMPR EHENS BOB METAB OLIC PANEL alanine aminotransfe rase 21 U/L 0-50 Not Available [facility] (Lab) [address] [place], [address], 09/29/2022 19:10:46 09/30/19 23 09/29/2022 COMPR EHENS BOB METAB OLIC PANEL aspartate aminotransfe rase 27 U/L 15-46 Not Available [facility] (Lab) [address] [place], [address], 09/29/2022 19:10:46 09/30/19 23 09/29/2022 COMPR EHENS BOB METAB OLIC PANEL bilirubin, total 0.70 mg/dL 0.20-1 .30 Not Available [facility] (Lab) [address] [place], [address], 09/29/2022 19:10:46 09/30/19 23 09/29/2022 COMPR EHENS BOB METAB OLIC PANEL calcium 8.8 mg/dL 8.4-10 .2 Not Available [facility] (Lab) [address] [place], [address], 09/29/2022 19:10:46 09/30/19 23 09/29/2022 COMPR EHENS BOB METAB OLIC PANEL total protein 7.0 g/dL 6.3-8. 2 Not Available [facility] (Lab) [address] [place], [address], 09/29/2022 19:10:46 09/30/19 23 09/29/2022 COMPR EHENS BOB METAB OLIC PANEL albumin 4.4 g/dL 3.0-4. 4 Not Available [facility] (Lab) [address] [place], [address], 09/29/2022 19:10:46 09/30/19 23 09/29/2022 COMPR EHENS BOB METAB OLIC PANEL globulin 2.6 g/dL 2.6-4. 2 Not Available [facility] (Lab) [address] [place], [address], 09/29/2022 19:10:46 09/30/19 23 09/29/2022 COMPR EHENS BOB METAB OLIC PANEL A/G ratio 1.7 ratio 1.0-2. 0 Not Available [facility] (Lab) [address] [facility], [place], [address], 09/29/2022 19:10:46 01/11/20 22 01/10/2022 CT, angio gram, chest , w/ contr ast No observ ation record ed. [id number], [place], [address], 09/21/2022 06:22:18 01/11/20 22 01/10/2022 XR, chest No observ ation record ed. [id number] [id number], [place], [address], 09/21/2022 06:22:18 02/17/20 22 02/16/2022 US, renal No observ ation record ed. [id number] [facility] [address], [place], [address], 09/21/2022 06:22:18 10/14/19 23 07/06/2022 XR, chest , 2 view No observ ation record ed. [email or web address] Not Available 2022 13:32:44 07/06/20 23 07/06/2023 cardi ac stres s test No observ ation record ed. cyahl [facility] [id number] [facility] [address], [place], [address], 07/31/2023 09:25:30 Result Notes None recorded. Problems Name Problem SNOMED Code Status Onset Date Resolution Date Notes Provider Name and Address Organization Details Recorded Time Blood glucose outside reference range 198090482 Active 2021 Not Available [facility] 3 15:17:58 Gastroesop hageal reflux disease 753208000 Active Not Available [facility] 3 15:17:58 Dyslipidem ia 051595832 Active 2017 Not Available [facility] 3 15:17:58 Screening for malignant neoplasm of prostate Active 2021 Not Available [facility] 3 15:17:58 Essential hypertensi on 88350515 Active Not Available [facility] 3 15:17:58 Allergic rhinitis 33025851 Active Not Available [facility] 3 15:17:58 Polyp of colon 66049896 Active Not Available [facility] 3 15:17:58 Obstructiv e sleep apnea syndrome 93804769 Active 2021 Not Available [facility] 3 15:17:58 Kidney lesion [id number] 0 Active 2021 Not Available [facility] 3 15:17:58 Notes:11-28-2017--last eye exa m 2-3 years ago Problem Notes None recorded. Procedures Surgical History Date Name Laterality Status Provider Name and Address Organization Details Recorded Time 6 Colonoscopy completed Not Available [facility] 09/22/19 06:11:09 other completed Not Available [facility] 07/2022 06:11:09 Imaging Results Imaging Date Name Status LastModified by Organiz ation Details LastModified Time 01/10/2022 CT, angiogram, chest, w/ contrast completed [id number] [address], [place], [address], 09/21/2022 06:22:18 01/10/2022 XR, chest completed [id number], [place], [address], 09/21/2022 06:22:18 02/16/2022 US, renal completed [id number] 026 [facility] [address], [place], [address], 09/21/2022 06:22:18 07/06/2022 XR, chest, 2 view completed [facility] Information not available 10/13/2022 13:32:44 07/06/2023 cardiac stress test completed [facility] [address], [place], [address], 07/31/2023 09:25:30 Procedure Notes None recorded. Medical Equipment None Reported. Allergies Allergen ID Allergen Name Allergen Category Reaction Reaction Severity Criticality Documentation Date Start Date Code Code System Note Provider Name and Address Organization Details Recorded Time 98630 cat dander environme nt Not available Not available Not available 09/21/2022 [id number] UNK Not Available [facility] 06:21:59 Medications Name Sig Start Date Stop [...] completed Not Available Not Available Not Available [facility] COVID-19 Vaccine (PF) 30 mcg/0.3 mL IM susp (purple) ADMINISTE R 0.3ML IN THE MUSCLE DIRECTED 02/16 completed Not Available Not Available Not Available Vitals Date Recorded Body mass index (BMI) Body height Heart rate Body temperature Body weight Systolic blood pressure Diastolic blood pressure Provider Name and Address Organization Details Last Updated DateTime 2 31.9 kg/m2 172.72 cm 78 /min 97.5 [degF] 04156.4 g 126 mm[Hg] 70 mm[Hg] Not Available [facility] 3 06:12:09 Date Recorded Body mass index (BMI) Body height Heart rate Body temperature Body weight Systolic blood pressure Diastolic blood pressure Provider Name and Address Organization Details Last Updated DateTime 2 31.3 kg/m2 172.72 cm 86 /min 96.9 [degF] 30536.0 3 g 130 mm[Hg] 82 mm[Hg] Not Available [facility] 3 06:12:09 Date Recorded Body mass index (BMI) Body height Heart rate Body temperature Body weight Systolic blood pressure Diastolic blood pressure Provider Name and Address Organization Details Last Updated DateTime 2 31 kg/m2 172.72 cm 77 /min 98.1 [degF] 04634.8 4 g 130 mm[Hg] 84 mm[Hg] Not Available [facility] 3 06:12:09 Date Recorded Body height Body mass index (BMI) Body weight Body temperature Heart rate Systolic blood pressure Diastolic blood pressure Provider Name and Address Organization Details Last Updated DateTime 3 172.72 cm 31.3 kg/m2 62689.0 3 g 97.8 [degF] 67 /min 122 mm[Hg] 70 mm[Hg] BRENDON Ching [place] - [facility] [employer] [facility] 3 11:19:52 Date Recorded Body height Body mass index (BMI) Body weight Body temperature Heart rate Systolic blood pressure Diastolic blood pressure Provider Name and Address Organization Details Last Updated DateTime 3 172.72 cm 32.1 kg/m2 98722.9 9 g 97.5 [degF] 79 /min 118 mm[Hg] 82 mm[Hg] BRENDON Ching A[place]yah [place] [employer] [facility] 3 10:20:22 Social History Question Answer Notes LastModified by Organization Details LastModified Time Tobacco Smoking Status Former Smoker quit 30+ yrs ago Not Available [employer] 09/21/2022 06:09:15 Do You Have An Advance Directive? No MIGRATION.030 [id number] Information not available 09/21/2022 Do You Wear A Helmet When Biking? No MIGRATION.030 [id number] Information not available 09/21/2022 Are You Blind Or Do You Have Difficulty Seeing? No MIGRATION.030 [id number] Information not available 09/21/2022 What Is Your Level Of Caffeine Consumption? Moderate MIGRATION.030 [id number] Information not available 09/21/2022 In The 14 Days Before Symptom Onset, Have You Had Close Contact With A Laboratory-confi rmed COVID-19 While That Case Was Ill? No MIGRATION.030 [id number] Information not available 09/21/2022 In The 14 Days Before Symptom Onset, Have You Had Close Contact With A Person Who Is Under Investigation For COVID-19 While That Person Was Ill? No MIGRATION.030 [id number] Information not available 09/21/2022 Are You Deaf Or Do You Have Serious Difficulty Hearing? No MIGRATION.030 066623 Information not available 09/21/2022 What Type Of Diet Are You Following? REGULAR MIGRATION.030 029800 Information not available 09/21/2022 What Is The Highest Grade Or Level Of School You Have Completed Or The Highest Degree You Have Received? [id number] MIGRATION.030 [id number] Information not available 09/21/2022 Have There Been Any Changes To Your Family Or Social Situation? No Sister MIGRATION.030 268538 Information not available 09/21/2022 What Is The Fluoride Status Of Your Home? Unknown MIGRATION.030 191886 Information not available 09/21/2022 When Did You Quit Smoking? 16+yearssincelastc igarette MIGRATION.0301 510005 Information not available 09/21/2022 Are There Any Guns Present In Your Home? No MIGRATION.0301 816376 Information not available 09/21/2022 Do You Use Insect Repellent Routinely? No MIGRATION.0301 759245 Information not available 09/21/2022 [facility].03[facility] [id number] Information not available 09/21/2022 Do You Have A Medical Power Of Receiving Coordinator? No MIGRATION.0301 293285 Information not available 09/21/2022 What Was The Date Of Your Most Recent Tobacco Screening? 04/06/2023 [email or web address] Information not available 04/06/2023 Have You Ever Been Counseled For Unhealthy Alcohol Use? No MIGRATION.0301 [id number] Information not available 09/21/2022 Do You Have Any Pets? Yes MIGRATION.0301 [id number] Information not available 09/21/2022 What Is Your Relationship Status? MIGRATION.0301 [id number] Information not available 09/21/2022 Do You Use Your Seat Belt Or Car Seat Routinely? Yes MIGRATION.0301 [id number] Information not available 09/21/2022 Do You Have Smoke And Carbon Monoxide Detectors In Your Home? Yes MIGRATION.0301 246513 Information not available 09/21/2022 Are You Passively Exposed To Smoke? No MIGRATION.0301 696395 Information not available 09/21/2022 Are There Any Smokers In Your House? No MIGRATION.0301 912834 Information not available 09/21/2022 What Types Of Sporting Activities Do You Participate In? None MIGRATION.0301 922043 Information not available 09/21/2022 Do You Use Sunscreen Routinely? No MIGRATION.0301 486303 Information not available 09/21/2022 Has Tobacco Cessation Counseling Been Provided? No MIGRATION.0301 025393 Information not available 09/21/2022 Have You Recently Traveled Abroad? No MIGRATION.0301 233678 Information not available 09/21/2022 Do You Have Difficulty Walking Or Climbing Stairs? No MIGRATION.0301 [id number] Information not available 09/21/2022 Do You Have Any Dietary Restrictions? No MIGRATION.0301 421693 Information not available 09/21/2022 Sex: Male Functional Status Question Answer Note LastModified by Organizat ion Details LastModified Time Do you use any illicit or recreational drugs? No MIGRATION.50980 99396 Information not available 09/21/2022 Do you or have you ever used any other forms of tobacco or nicotine? No MIGRATION.12941 58336 Information not available 09/21/2022 What is your level of alcohol consumption? Moderate 2 beers a day MIGRATION.05156 03476 Information not available 09/21/2022 Do you have transportation difficulties? No MIGRATION.60946 87753 Information not available 09/21/2022 Are you able to walk? [place]WOREST MIGRATION.19393 38411 Information not available 09/21/2022 Do you have difficulty doing errands alone? No MIGRATION.75764 21512 Information not available 09/21/2022 Are you able to care for yourself? Yes MIGRATION.86257 89096 Information not available 09/21/2022 What is your occupation? retired teacher MIGRATION.22060 57033 Information not available 09/21/2022 Do you have difficulty dressing or bathing? No MIGRATION.31875 42976 Information not available 09/21/2022 What is your exercise level? Occasional active around the house MIGRATION.14423 75065 Information not available 09/21/2022 Mental Status Question Answer Note LastModified by Organizat ion Details LastModified Time Do you feel stressed (tense, restless, nervous, or anxious, or unable to sleep at night)? [id number] MIGRATION.[id number] 26 Information not available 09/21/2022 Do you have difficulty concentrating, remembering or making decisions? No MIGRATION.92231310 26 Information not available 09/21/2022 Family History Relationship Description Onset Age of this Age Resolved Age Notes LastModified by Organization Details LastModified Time Mother Alzheimer's disease deceas ed MIGRATION.139 [id number] Not available 09/21/2022 06:11:09 Father Myocardial infarction deceas ed MIGRATION.859 [id number] Not available 09/21/2022 06:11:09 Brother Myocardial infarction MIGRATION.104 [id number] Not available 09/21/2022 06:11:10 Brother Malignant tumor of pharynx deceas ed MIGRATION.956 [id number] Not available 09/21/2022 06:11:10 Brother Cerebrovascu lar accident x4 MIGRATION.267 [id number] Not available 09/21/2022 06:11:10 Sister Alzheimer's disease deceas ed MIGRATION.657 [id number] Not available 09/21/2022 06:11:10 Medical History Condition Response NERVE DISEASE N BLINDNESS N RHEUMATIC FEVER N KIDNEY STONES N BLADDER PROBLEMS N MRSA N OTHER # 1 N POLIO N LUNG DISEASE/DISORDER N HISTORY OF DRUG ABUSE N RADIATION / CHEMOTHERAPY N COPD N Other # 2 N BLOOD DISEASES N EAR OR HEARING PROBLEMS N MUMPS N SHINGLES N BOWEL PROBLEMS N DEPRESSION (INCLUDING POST ) N STROKE/TIA N ULCERS N BENIGN PROSTATIC HYPERPLASIA N MEASLES N HYPOTENSION N MYOCARDIAL INFARCTION N OBESITY N GERD/NAUSEA Y ANEURYSM N URINARY/BLADDER/KIDNEY PROBLEMS N CORONARY ARTERY DISEASE (CAD) N ADDICTION CONCERNS N Impotence N ENDOMETRIOSIS N USE OF BLOOD THINNERS N SKIN [...] GLAUCOMA N FOOT PROBLEM N DIVERTICULITIS N SLEEP APNEA Y CHICKENPOX N INFECTIOUS DISEASE N PROSTATE N HEART ARRHYTHMIA N INSOMNIA N HIGH CHOLESTEROL / HYPERLIPIDEMIA Y EYE PROBLEMS N HYPERTHYROIDISM N EDEMA N CHRONIC PAIN SYNDROME N HYPOTHYROIDISM N CONSTIPATION N CAROTID BLOCKAGE N BACK / NECK PROBLEMS Y ATHEROSCLEROSIS N BREAST PROBLEMS N DIALYSIS N ECZEMA N OSTEOPOROSIS N ARTHRITIS N APPENDICITIS N DIABETES, TYPE N BAD TEETH N ENT N HEARTBURN / REFLUX N AUTISM SPECTRUM DISORDER (ASD) N HEPATITIS / LIVER DISEASE N GOUT N SLEEP DISORDER N ALZHEIMER'S DISEASE N Brain Problems N DEMENTIA N HERPES N SEIZURES/EPILEPSY N HEADACHES/MIGRAINES N VASCULAR DISEASE N PACEMAKER N Blood Disorder N DIZZINESS N HEART DISEASE/HEART PROBLEMS N KIDNEY DISEASE N MULTIPLE SCLEROSIS N CANCER: SPECIFY N CARDIAC ARRHYTHMIA N ATRIAL FIBRILLATION N Gall Stones N PULMONARY EMBOLISM N AUTOIMMUNE DISEASE N Immunizations Vaccine Type Date Status Note Provider Nam e and Address Organization Details Recorded Time Influenza, high-dose, trivalent, PF 0 completed Not Available [facility] 11/26/2022 15:17:58 COVID-19, mRNA, LNP-S, PF, 30 mcg/0.3 mL dose 1 completed Not Available [facility] 11/26/2022 15:17:58 COVID-19, mRNA, LNP-S, PF, 30 mcg/0.3 mL dose 1 completed Not Available [facility] 11/26/2022 15:17:58 COVID-19, mRNA, LNP-S, PF, 30 mcg/0.3 mL dose 1 completed Not Available [facility] 11/26/2022 15:17:58 pneumococcal polysaccharide PPV23 0 completed Not Available [facility] 11/26/2022 15:17:58 Influenza, high-dose, trivalent, PF 7 completed Not Available [facility] 11/26/2022 15:17:58 Pneumococcal conjugate PCV 13 2 completed Not Available [facility] 11/26/2022 15:17:58 pneumococcal polysaccharide PPV23 6 completed Not Available [facility] 11/26/2022 15:17:58 Past Encounters Encounter ID Performer Location Encounter Start Date Encounter Closed Date Diagnosis/Indication Diagnosis SNOMED-CT Code Diagnosis ICD10 Code Diagnosis Note [id number] Ean Hickman MD [facility] Internal Med Tulio llmicky [facility] [address] [address] 02/16/2021 00:00:00 02/16/2021 20:59:01 [id number] Ean Hickman MD [facility] Internal Med Tulio sanabria [facility] [address] [address] 09/02/2021 00:00:00 09/25/2021 21:25:40 [id number] Ean Hickman MD [facility] Internal Med Ehvi llmicky [facility] [address] [address] 02/03/2022 00:00:00 02/05/2022 16:49:24 [id number] Ean Hickman MD [facility] Internal Med Tulio sanabria [address] [place] [address] [place] [address] 06/02/2022 00:00:00 06/03/2022 15:08:25 [id number] Ean Hickman MD [facility] Internal Med Tulio llmicky [address] [place] [address] [place] [address] 09/29/2022 10:52:05 09/29/2022 12:42:52 Dyslipidemia 725333117 E78.5 Essential hypertension 68335806 I10 Gastroesop hageal reflux disease 490520904 K21.9 [id number] Ean Hickman MD [facility] Internal Med Edwardskaren llmicky [address] [facility] [place] [address] 04/06/2023 10:07:26 04/06/2023 11:06:56 Dyslipidemia 235884712 E78.5 Obstructiv e sleep apnea syndrome 00573768 G47.33 Essential hypertension 27587657 I10 Gastroesop hageal reflux disease 409304773 K21.9 Health Concerns Section Related Observation LastModified by Organization Detai ls LastModified Time None Recorded Concern Status LastModified by Organization Details LastModified Time None Recorded Advance Directives Directive N: Payers Encounter Date Sequence Insurance Name Policy Number Policy Acosta Covered Member ID Acosta Member ID Guarantor Name 09/29/2022 1 [employer] (MEDICARE REPLACEMENT/ ADVANTAGE - PPO) [id number] Sterling Palm [id number] Sterling Palm 04/06/2023 1 [employer] (MEDICARE REPLACEMENT/ ADVANTAGE - PPO) [id number] Sterling Palm [id number] Sterling Palm Notes Date Note Type Note Provider Name and Address Organization Details Recorded Time 04/06/2023 text/html Dyslipidemia betty ch his diet sleep apnea uses his machine gains benefit hypertension no headache or dizziness GERD no nausea no vomiting. COPD/asthma stable Ean Hickman MD [address] [facility], [facility] [address], [place], [address], [facility] [employer] 04/06/2023 21:19:18
[2024-12-12 13:10] VITALS: BP 125/79; PULSE 82; RESP 18; TEMP 37.1; O2SAT 97
[2024-12-12] MEDS: LACTATED RINGERS 1,000 ML 150 ML IV CONT (13:18)
--- NOTE | 2024-12-12 13:34 | P.PNAN_ITS ---
Anes - Initial Pre Proc Eval Procedure: Operation Date: 12/12/24 14:00 Proposed Procedures p Screening Colonoscopy - Bear Oscar MD Date/Time: 12/12/24 13:34 Surgeon: Bear Oscar MD Pre Op Diagnosis: screening Patient Data Age: 79 Gender: M Height: 1.73 m Weight: 93 kg Last Vital Signs Temp 37.1 C 12/12/24 13:10 Pulse 82 12/12/24 13:10 Resp 18 12/12/24 13:10 BP 125/79 12/12/24 13:10 Pulse Ox 97 12/12/24 13:10 O2 Del Method Room Air 12/12/24 13:10 Allergies Allergy/AdvReac Type Severity Reaction Status Date / Time CAT Allergy Intermediate ITCHING, Uncoded 12/12/24 13:09 REDNESS OF EYES Home Medications ?Medication ?Instructions ?Recorded ?Confirmed ?Type amlodipine 5 mg tablet 5 mg PO DAILY 01/10/22 12/12/24 History atorvastatin 10 mg tablet 10 mg PO QPM 01/10/22 12/12/24 History omeprazole 20 mg capsule,delayed 20 mg PO DAILY 01/10/22 12/12/24 History release Patient hx anesthesia problems: none Family hx anesthesia problems: none Results Review: All pre-operative results and documents have been reviewed as part of the pre- operative evaluation. [facility] Past Medical History Medical History (Updated 12/11/24 @ 14:37 by Mumtaz Russo, ) RADHA (obstructive sleep apnea) Asthma Hypercholesterolemia Hypertension Social History Social History (Updated 01/10/22 @ 08:13 by Jeff Rizzo, DO) Smoking packs per day: 0.5 Smoking cigarettes per day: 10.0 Years smoked: 20 Smoking pack-years: 10.00 Smoking status: Former smoker Tobacco type: cigarettes Alcohol intake: current Drinks per week: 14 Substance use type: does not use Living arrangements: with family Spiritual care concerns: No Anes - Eval Final PreProcedure Day of Procedure 12/12/24 13:34 Patient weight: obese Heart: regular rate and rhythm Lungs: clear to auscultation Airway: Mallampati scale class II Neurological: alert and oriented Last oral intake: >/= 8 hours ASA classification: III Emergent: no Anesthetic plan: proceed Anesthesia type and monitoring: general GIVS and standard monitoring Results Review: All pre-operative results and documents have been reviewed as part of the pre- operative evaluation. Informed Consent: The patient's anesthetic plan and its attendant risks and benefits were discussed with the patient/family/POA. Questions were solicited and answers provided to the satisfaction of the patient/family/POA.
--- NOTE | 2024-12-12 14:39 | PM.HPGS ---
History of Present Illness History of Present Illness Consent: Risks, benefits, and alternatives have been discussed and questions answered. Patient agrees to proceed with procedure. Chief complaint: screening Narrative: Sterling Palm is a 79 year old male with history of colon polyp here for colonoscopy Review of Systems Review of Systems: All systems reviewed & are unremarkable except as noted in HPI and below PMFSH Past Medical History Medical History (Updated 12/12/24 @ 14:40 by Bear Oscar MD) Colon polyp RADHA (obstructive sleep apnea) Asthma Hypercholesterolemia Hypertension Social History Social History (Updated 01/10/22 @ 08:13 by Jeff Rizzo, DO) Smoking packs per day: 0.5 Smoking cigarettes per day: 10.0 Years smoked: 20 Smoking pack-years: 10.00 Smoking status: Former smoker Tobacco type: cigarettes Alcohol intake: current Drinks per week: 14 Substance use type: does not use Living arrangements: with family Spiritual care concerns: No Meds Home Medications and Allergies Home Medications ?Medication ?Instructions ?Recorded ?Confirmed ?Type amlodipine 5 mg tablet 5 mg PO DAILY 01/10/22 12/12/24 History atorvastatin 10 mg tablet 10 mg PO QPM 01/10/22 12/12/24 History omeprazole 20 mg capsule,delayed 20 mg PO DAILY 01/10/22 12/12/24 History release Allergies Allergy/AdvReac Type Severity Reaction Status Date / Time CAT Allergy Intermediate ITCHING, Uncoded 12/12/24 13:09 REDNESS OF EYES Vital Signs Vital Signs - 24 hr 12/12/24 13:10 Temperature 98.7 F Pulse Rate 82 Respiratory Rate 18 Blood Pressure 125/79 Pulse Oximetry 97 Oxygen Delivery Room Air Exam Const: General: comfortable and no acute distress HENMT: Face/Nose/Sinus: Normal nares present Eyes: General: appearance normal, both eyes and all related structures Neck: Neck: no JVD Resp: Auscultation: clear to auscultation bilaterally Cardio: Rate: regular rate Rhythm: regular rhythm GI: Inspection: non-distended GI Palp: Yes Soft to palpation Skin: General skin exam: normal color Neuro: General: gait normal Speech: normal speech Extrem: General: normal to inspection Psych: Mental Status: mental status grossly normal Assessment and Plan Assessment and plan (1) Colon polyp: Code(s): K63.5 - Polyp of colon Status: Acute Assessment and Plan: colonoscopy
[2024-12-12 14:56] VITALS: BP 126/80; PULSE 70; RESP 18; O2SAT 97
[2024-12-12 15:06] VITALS: BP 123/81; PULSE 69; RESP 18; O2SAT 98
[2024-12-12 15:13] VITALS: BP 138/85; PULSE 68; RESP 18; O2SAT 100
== END 2024-12-12 15:29 | disposition home or self-care (01) ==
PROVIDERS: PCP Internal Medicine; Referring Provider Internal Medicine; Visit Provider Internal Medicine Gastroenterology
PROC: 0DJD8ZZ Inspection of Lower Intestinal Tract, Via Natural or Artificial Opening Endoscopic (ICD-10-PCS; CPT 45378; principal; 2024-12-12 14:00)
DX: Z12.11 Encounter for screening for malignant neoplasm of colon (principal); K64.8 Other hemorrhoids; K57.30 Diverticulosis of large intestine without perforation or abscess without bleeding; I10 Essential (primary) hypertension; E78.00 Pure hypercholesterolemia, unspecified; J45.909 Unspecified asthma, uncomplicated; G47.33 Obstructive sleep apnea (adult) (pediatric); E66.9 Obesity, unspecified; Z68.31 Body mass index [BMI] 31.0-31.9, adult; Z86.0100 Personal history of colon polyps, unspecified; Z87.891 Personal history of nicotine dependence
CPT/HCPCS: G0105; J2003; J2704; J7120

== ENCOUNTER 2025-02-24 10:12 | Outpatient (CLI) | payer MEDICARE, SELFPAY ==
[2025-02-24 15:10] LABS: Hematocrit 45.3 % (42.0-52.0); Hemoglobin 14.6 g/dL (14.0-18.0); Immature Granulocyte Percent A 0.3 % (0-0.5); Lymphocytes Absolute Auto 1.24 K/mm3 (0.9-3.2); Mean Corpuscular HGB Conc 32.2 g/dl (32-36); Mean Corpuscular Hemoglobin 31.0 pg (26-34); Mean Corpuscular Volume 96.2 fl (80-100); Nucleated Red Blood Cells Absolute Auto 0.000 K/mm3 (0.0-0.012); Nucleated Red Blood Cells Perc 0.0 % (0.0-0.2); Platelet Count Result 273 k/mm3 (150-375); Red Blood Count 4.71 M/mm3 (4.6-6.20); White Blood Count 6.5 K/mm3 (4.5-10.0)
[2025-02-24 15:21] LABS: Alanine Aminotransferase 24 U/L (6-50); Albumin Level 4.5 g/dL (3.5-5.1); Alkaline Phosphatase 82 U/L (38-126); Anion Gap 8 mmol/L (4-12); Aspartate Amino Transferase 45 U/L (17-59); Bilirubin,Total 0.6 mg/dL (0.2-1.3); Blood Urea Nitrogen 21 mg/dL (9-20); Calcium 9.1 mg/dL (8.4-10.2); Carbon Dioxide 26 mmol/L (22-30); Chloride 105 mmol/L (98-107); Cholesterol 182 mg/dL (0-200); Estimated Glomerular Filt Rate > 60; Glucose 99 mg/dL (65-110); HDL Direct 60 mg/dL; Potassium 4.5 mmol/L (3.4-5.0); Sodium 139 mmol/L (137-145); Total Protein 7.5 g/dL (6.3-8.2); Triglycerides 105 mg/dL (<150)
== END 2025-02-24 10:13 | disposition home or self-care (01) ==
PROVIDERS: PCP Internal Medicine; Visit Provider Internal Medicine
DX: I10 Essential (primary) hypertension (principal)
CPT/HCPCS: 36415; 80053; 80061; 85025